=== PATIENT | female | born 1965 | race Caucasian/White ===

== ENCOUNTER 2020-01-10 13:17 | Inpatient (IN) | payer OTHER ==
[~2020-01-10] VITALS: Ht 165.1 cm; Wt 83.0 kg
[~2020-01-10 13:17] MED LIST: ALPR.5 PO; AMLO5 PO; Aspirin EC81 MG PO; HYDACE10B PO; LISI20 PO
[2020-01-10 14:12] LABS: Hematocrit 28.5 % (33.0-51.0); Hemoglobin 9.3 g/dL (11.5-16.0); Mean Corpuscular HGB 29.7 pg (26.0-34.0); Mean Corpuscular HGB Conc 32.6 g/dL (31.5-36.5); Mean Corpuscular Volume 91 fL (80-100); Mean Platelet Volume 9.7 fL (9.1-12.4); Platelet Count 434 K/mm3 (150-400); RDW Coefficient Variation 15.5 % (11.7-14.2); RDW Standard Deviation 51.4 fL (35.1-46.3); Red Blood Cell Count 3.13 M/mm3 (3.80-5.20)
[2020-01-10 14:22] LABS: PCO2 Arterial 30.5 mmHg (35-45); PO2 Arterial 80.1 mmHg (80-100)
[2020-01-10 14:23] LABS: White Blood Cell Count 50.94 K/mm3 (4.00-11.30)
[2020-01-10 14:42] LABS: Ethanol (Alcohol), Blood, Med <3 mg/dL; International Normalized Ratio 1.33; Troponin I <0.015 ng/mL (0.000-0.040)
[2020-01-10 14:43] LABS: BAND PERCENT MAN 26 % (0-8); BASOPHILS PERCENT MAN 0 % (0-2); EOSINOPHILS PERCENT MAN 0 % (0-6); LYMPHOCYTES ABSOLUTE MAN 2.54 K/mm3 (0.84-5.20); LYMPHOCYTES PERCENT MAN 5 % (21-46); METAMYELOCYTE ABSOLUTE MAN 1.01 K/mm3 (0.00-0.00); METAMYELOCYTE PERCENT MAN 2 % (0-0); MONOCYTES PERCENT MAN 0 % (4-13); NEUTROPHILS ABSOLUTE MAN 47.37 K/mm3 (1.96-9.15); SEG NEUTROPHILS PERCENT MAN 67 % (41-73); TOTAL CELLS COUNTED 100
[2020-01-10 14:50] LABS: Alanine Aminotransfer (ALT/SGP 27 U/L (12-78); Albumin, Blood 1.3 g/dL (3.4-5.0); Albumin/Globulin Ratio 0.3 (0.8-1.8); Alk Phos 239 U/L (50-136); Anion Gap 10 mmol/L (6-16); Aspartate Aminotrans (AST/SGOT 37 U/L (12-37); Bilirubin, Total 0.5 mg/dL (0.1-1.0); Blood Urea Nitrogen 44 mg/dL (8-24); Bun/Creatinine Ratio 16.4 (12.0-20.0); CO2, Blood 21 mmol/L (21-32); Calcium, Blood 7.3 mg/dL (8.5-10.1); Chloride, Blood 100 mmol/L (98-108); Creatinine, Blood 2.68 mg/dL (0.40-1.00); Globulin, Blood 4.4 g/dL (2.2-4.0); Glomerular Filtration Rate 20 (60-); Glucose, Blood 83 mg/dL (70-99); Potassium, Blood 6.1 mmol/L (3.5-5.5); Sodium, Blood 131 mmol/L (136-145); Total Protein, Blood 5.7 g/dL (6.4-8.2)
[2020-01-10 16:30] LABS: Adenovirus Not Detected (NOT DETECT); Bordetella pertussis Not Detected (NOT DETECT); Chlamydophila pneumoniae Not Detected (NOT DETECT); Coronavirus 229E Not Detected (NOT DETECT); Coronavirus HKU1 Not Detected (NOT DETECT); Coronavirus NL63 Not Detected (NOT DETECT); Coronavirus OC43 Not Detected (NOT DETECT); Human Metapneumovirus Not Detected (NOT DETECT); Human Rhinovirus/Enterovirus Not Detected (NOT DETECT); Influenza A/2009-H1 Not Detected (NOT DETECT); Influenza A/H1 Not Detected (NOT DETECT); Influenza A/H3 Not Detected (NOT DETECT); Influenza B Not Detected (NOT DETECT); Mycoplasma pneumoniae Not Detected (NOT DETECT); Parainfluenza Virus 1 Not Detected (NOT DETECT); Parainfluenza Virus 2 Not Detected (NOT DETECT); Parainfluenza Virus 3 Not Detected (NOT DETECT); Parainfluenza Virus 4 Not Detected (NOT DETECT); Respiratory Syncytial Virus Not Detected (NOT DETECT)
[2020-01-10 17:10] LABS: Source, Urine Catheter
[2020-01-10] MEDS ORDERED: AMLO5 PO (17:13)
[2020-01-10] MEDS ORDERED: DICLOFENAC 1% TOP (17:14)
[2020-01-10] MEDS ORDERED: Diclofenac Sodi50 MG PO (17:15)
[2020-01-10] MEDS ORDERED: FURO40 PO (17:17)
[2020-01-10] MEDS ORDERED: NORCO PO (17:18)
[2020-01-10] MEDS ORDERED: LISI20 PO (17:19)
[2020-01-10] MEDS ORDERED: METO25ER PO (17:20)
[2020-01-10] MEDS ORDERED: Nitrofurantoin100 M1 PO (17:21)
[2020-01-10] MEDS ORDERED: TIOT18 INH (17:22)
[2020-01-10 17:24] LABS: Blood, Urine 2+ (Neg); Glucose Qualitative, Urine Neg (Neg); Ketones, Urine Neg (Neg); Leukocyte Esterase, Urine 2+ (Neg); Nitrite, Urine Neg (Neg); Protein, Urine 1+ (Neg); Specific Gravity, Urine 1.015 (1.003-1.022); Urobilinogen, Urine 1+ (Normal)
[2020-01-10] MEDS ORDERED: Vitamin D3 PO (17:24)
[2020-01-10 17:30] LABS: Appearance, Urine Hazy (Clear); Bilirubin, Urine 1+ (Neg); Color, Urine Yellow (P-Yellow)
[2020-01-10 17:31] LABS: Bacteria Few /hpf; Squamous Epithelial Cells Many /hpf (Few)
[2020-01-10 17:33] LABS: U Amphetamine Screen Not Detected; U Barbituate Screen Not Detected; U Benzodiazapine Screen DETECTED; U Buprenorphine Screen Not Detected; U Cannabinoids Screen Not Detected; U Cocaine Screen Not Detected; U Methadone Screen Not Detected; U Methamphetamine Screen Not Detected; U Opiates Screen DETECTED; U Oxycodone Screen Not Detected; U Phencyclidine Screen Not Detected; U Propoxyphene Screen Not Detected
[2020-01-10 17:44] LABS: Base Excess Venous -8.1 mmol/L; Bicarbonate Venous 17.8 mmol/L (24.0-30.0); PCO2 Venous 40.1 mmHg (38-42); PO2 Venous 39.4 mmHg (38-42)
[2020-01-10 17:45] LABS: pH Blood Venous 7.27 (7.34-7.37)
[2020-01-10 18:32] LABS: Albumin, Blood 1.2 g/dL (3.4-5.0); Anion Gap 9 mmol/L (6-16); Blood Urea Nitrogen 40 mg/dL (8-24); Bun/Creatinine Ratio 17.5 (12.0-20.0); CO2, Blood 19 mmol/L (21-32); Calcium, Blood 6.8 mg/dL (8.5-10.1); Chloride, Blood 105 mmol/L (98-108); Creatinine, Blood 2.29 mg/dL (0.40-1.00); Glomerular Filtration Rate 24 (60-); Glucose, Blood 92 mg/dL (70-99); Phosphorus, Blood 6.4 mg/dL (2.5-4.9); Potassium, Blood 5.2 mmol/L (3.5-5.5); Sodium, Blood 133 mmol/L (136-145)
--- NOTE | 2020-01-10 19:20 | NUR ---
ASSUMED CARE OF PT, BEDSIDE REPORT RECEIVED. PT IS RESTING QUIETLY ON LEFT SIDE IN BED ON ARRIVAL TO ROOM, DOES NOT VERBALLY INTERACT WITH STAFF DURING PT HANDOFF REPORT. GTTS ARE NOTED LR 1 LITER BOLUS INFUSING AT WIDE OPEN AND 500 ML REMAINING, LEVOPHED GTT AT 20 MCG/MIN, VASOPRESSIN AT 0.04 MCG/MIN, LEVAQUIN AND VANCOMYCIN CURRENTLY INFUSING. PT DOES RESPOND TO HER STATED NAME AND INQUIRY REGARDING PAIN, STATES THAT SHE HURTS ALL OVER HOWEVER DOES NOT PROVIDE PAIN SCALE WHEN ASKED AND DOES NOT DESCRIBE PAIN ONSET OR QUALITY, STATES THAT SHE "JUST DON'T FEEL GOOD" AND REQUESTS TO SLEEP AT THIS TIME. SHE DOES OPEN EYES WHEN INSTRUCTED FOR PUPIL ASSESSMENT, IMMEDIATELY UPON COMPLETING STATEMENTS TO STAFF, SHE APPEARS TO RETURN TO SLEEP WITH OCCASIONAL SNORING RESPIRATIONS NOTED HOWEVER SATS MAINTAIN 91-92% AT FINGERTIP PROBE, IMPROVE TO 92-94% WITH MOVEMENT OF PROBE FROM FINGERTIP TO EARLOBE OR NARES, LUNGS ARE CLEAR WITH DIM SOUNDS MID TO BASES, RESP RATE IS BETWEEN 12 AND 14/MIN WHEN PT IS UNDISTURBED BUT IMPROVE TO 14-16/MIN WITH INCREASED STIMULATION, NO VISIBLE INCREASED WORK OF BREATHING IS NOTED AT THIS TIME, ,PT DENIES SOB/DYSPNEA. HRR, SINUS TO SINUS TACH ON MONITOR, RATE 90-105 DURING ASSESSMENT, RADIAL PULSES ARE FULL BILAT, PEDAL PULSES ARE DIFFICULT TO PALPATE AND 3+ PITTING EDEMA TO BILAT LOWER EXTREMITIES EXTENDS TO 2+ PITTING EDEMA UP TO MID ABD, HYPOTENSION IS NOTED DURING REPORT AND LARGE ADULT BP CUFF TO RIGHT ARM IS EXCHANGED FOR SMALL ADULT BP CUFF TO LEFT UPPER ARM WITH APPROPRIATE FIT NOTED, PRESSURE IS GREATER THAN 120 SYSTOLIC AND LEVOPHED IS TITRATED DOWN TO 18 MCG/MIN WILL MONITOR AND CONTINUE TO TITRATE DOWN PT TOLERATES. ACTIVE BOWEL TONES X 4 WITH TENDERNESS TO LIGHT PALPATION NOTED, ABD SOFT. TEMP PROBE RICE IN PLACE DRAINING CLEAR YELLOW URINE IN RICE TUBING AT THIS TIME, DARK TIANNA/BROWN URINE IS EMPTIED FROM URINARY DRAINAGE BAG BY OFFGOING RN, WILL CONT TO MONITOR. WOUNDS TO BILAT LOWER EXTREMITIES REVIEWED WITH OFFGOING RN, PHOTOS OBTAINED, WILL APPLY MEPILEX DRESSINGS. PER OFFGOING RN PT WAS VERY RECENTLY POSITIONED TO LEFT SIDE, WILL FURTHER ASSESS COCCYX/BUTTOCKS WITH NEXT POSITION CHANGE.
--- NOTE | 2020-01-10 19:52 | NUR ---
[id number]: RECEIVED PT FROM ER EMERGENTLY-NO REPORT RECEIVED. PT IS LETHARGIC-MOANS INTERMITTENTLY. WILL OPEN EYES TO VERBAL, BUT FALLS BACK TO SLEEP.GENERALIZED WEAKNESS NOTED. PT IS HANDS AND FEET SOILED. PT DID STATE THAT HER "BUTT" HURTS. CONSEQUENTLY, HER COCCYX AND BUTTOCKS WAS FOUND TO BE RED, BLISTERED-PHOTO DONE BY LAINA PEREZ. ECG SHOWS ST 100-110'S. SBP 60'S. PT GIVEN APROX. 1500 CC IVF IN THE ER. LEVOPHED DRIP @ 15 MCG/MIN INFUSING VIA #22 GUAGE IV TO LEFT WRIST. DR. SANTORO AT BEDSIDE. RIJ QUAD LUMEN C.L. PLACED AND CONFIRMED BY CXR. LR BOLUS INITIATED X 1 LITER, LEVOPHED TITRATED UP TO 20 MCG/MIN, AND VASOPRESSIN DRIP INITIATED @0.04 UNITS/MIN. HYDROCORTISONE 100 MG IVP X 1 GIVEN AND ORDERED FOR Q 6 HRS. LUNGS COARSE T/O. RESP SHALLOW, BUT MAINTAINS SAT> 90% ON 2 LITERS NASAL CANULA. NO NOTED COUGH. RAPID COVID TEST SENT. PT PLACED IN FULL PRECAUTIONS UNTIL COVID IS RULED OUT. NPO. 3+ PITTING EDEMA NOTED FROM THE ABDOMEN TO TOES. THERE IS REDNESS NOTED TO THE TOP OF THE LEFT FOOT. THE LOWER EXTREMITIES ARE DISCOLORED BROWN AND ARE TENDER TO TOUCH. CT HEAD, ABDOMEN AND PELVIS DONE-PT TO CT VIA BED WITH RN-TOLERATED WELL. DR. SANTORO CONTACTED AT 1900, ONCE THE LR BOLUS COMPLETED. MAP TRENDING LESS THAN 60. ADDITIONAL 1000CC BOLUS OF LR INITIATED. ORDERS GIVEN FOR EPI DRIP PRN TO KEEP MAP 60-65. INTAKE 4761 VS. 1000CC DARK, URINE OUTPUT FROM TEMP RICE. ONCE 500 CC OF THE SECOND BOLUS INFUSED, MAP 60'S. REPORT GIVEN TO LAINA FARRIS.
--- NOTE | 2020-01-10 21:00 | NUR ---
PAIN ASSESSMENT PT REFUSES TO TURN FAR ENOUGH TO SIDE FOR ADEQUATE ASSESSMENT OF COCCYX AND BUTTOCKS, CONCERNS REGARDING PRESSURE RELATED INJURY AND CURRENT SKIN ISSUES DISCUSSED WITH PT, RISKS OF INCREASING CURRENT PRESSURE AND MOISTURE RELATED INJURY WELL DEVELOPING MORE DECUBITIS ULCERS IS DISCUSSED WITH PT, SHE INITIALLY AGREES TO ATTEMPT HOWEVER PUSHES AGAINST BEDRAILS AND STAFF DURING TURN AND REFUSES. DR CAZARES ARRIVES AT BEDSIDE AND PT REPORT OF 10/10 PAIN IS DISCUSSED WELL HOME DOSE OF HYDROCODONE, CURRENT RESP RATE OF 12-14 DISCUSSED WITH MD WELL. ORDERS RECEIVED. PT IS ALERT AT THIS TIME AND ADMISSION HX IS COMPLETED, SHE DOES REQUEST THAT STAFF CONFIRM HOME DOSAGES WITH ARMANDO IN AM HE "CAN SEE THE BOTTLES"
[2020-01-10 21:22] LABS: Base Excess Venous -6.9 mmol/L; Bicarbonate Venous 19.1 mmol/L (24.0-30.0); PCO2 Venous 36.7 mmHg (38-42); PO2 Venous 53.9 mmHg (38-42); pH Blood Venous 7.33 (7.34-7.37)
[2020-01-11 04:29] LABS: Hematocrit 24.8 % (33.0-51.0); Hemoglobin 8.4 g/dL (11.5-16.0); Mean Corpuscular HGB 30.1 pg (26.0-34.0); Mean Corpuscular HGB Conc 33.9 g/dL (31.5-36.5); Mean Corpuscular Volume 89 fL (80-100); Mean Platelet Volume 9.8 fL (9.1-12.4); Platelet Count 366 K/mm3 (150-400); RDW Standard Deviation 48.4 fL (35.1-46.3); Red Blood Cell Count 2.79 M/mm3 (3.80-5.20)
[2020-01-11 04:49] LABS: BAND PERCENT MAN 13 % (0-8); BASOPHILS PERCENT MAN 0 % (0-2); EOSINOPHILS PERCENT MAN 0 % (0-6); MONOCYTES ABSOLUTE MAN 1.16 K/mm3 (0.16-1.47); MONOCYTES PERCENT MAN 2 % (4-13); NEUTROPHILS ABSOLUTE MAN 57.03 K/mm3 (1.96-9.15); SEG NEUTROPHILS PERCENT MAN 85 % (41-73); TOTAL CELLS COUNTED 100
[2020-01-11 04:55] LABS: Alanine Aminotransfer (ALT/SGP 23 U/L (12-78); Albumin, Blood 1.2 g/dL (3.4-5.0); Albumin/Globulin Ratio 0.3 (0.8-1.8); Alk Phos 231 U/L (50-136); Anion Gap 9 mmol/L (6-16); Aspartate Aminotrans (AST/SGOT 38 U/L (12-37); Bilirubin, Total 0.4 mg/dL (0.1-1.0); Blood Urea Nitrogen 37 mg/dL (8-24); Bun/Creatinine Ratio 18.4 (12.0-20.0); CO2, Blood 22 mmol/L (21-32); Calcium, Blood 6.7 mg/dL (8.5-10.1); Chloride, Blood 101 mmol/L (98-108); Creatinine, Blood 2.01 mg/dL (0.40-1.00); Globulin, Blood 3.9 g/dL (2.2-4.0); Glomerular Filtration Rate 27 (60-); Glucose, Blood 162 mg/dL (70-99); Magnesium, Blood 1.3 mg/dL (1.6-2.4); Potassium, Blood 4.7 mmol/L (3.5-5.5); Sodium, Blood 132 mmol/L (136-145); Total Protein, Blood 5.1 g/dL (6.4-8.2); Vancomycin, Random 20.3 ug/mL
--- NOTE | 2020-01-11 06:22 | NUR ---
PT RESTS QUIETLY THROUGHOUT SHIFT, REMAINS ORIENTED, AROUSABLE TO VERBAL STIMULI CONSISTENTLY, DID REMAIN ALERT THROUGHOUT ADMIT HX AND THEN REQUESTED TO SLEEP AFTER COMPLETION. COMMUNITY ORGANIZATION DIRECTOR REMAIN EQUAL THROUGHOUT NOC, GROSS MOVEMENT TO BILAT LOWER EXTREMITIES, PT REPORTS MOVEMENT IS EXTREMELY PAINFUL WITH POSITION CHANGES, WHEN STIMULATION IS DECREASED, PT APPEARS TO SLEEP WITHOUT RESTLESSNESS OR AGITATION, NO GRIMACING NOTED. CONTINUES TO DENY SOB THROUGHOUT NOC, SATS REMAIN MID 90S WITH OXYGEN AT 2 L/MIN TITRATED DOWN FROM 3 L/MIN AT HS, DID ATTEMPT TO TITRATE DOWN TO 1.5 L/MIN WITH RESULTING SATS DECREASED TO 88%, LUNGS REMAIN CLEAR THROUGHOUT, BASES DIM BILAT, RESP RATE 12-14 WITH APPEARANCE OF SLEEP. HRR, CONTINUES IN SINUS RHYTHM, LEVOPHED WAS TITRATED DOWN FROM 20 AT BEGINNING OF SHIFT TO 2 MCG/MIN OF THIS TIME, EDEMA TO BILAT LOWER EXTREMITIES CONTINUES AT 3+ PITTING EDEMA HOWEVER SKIN IS NO LONGER TIGHT AND SHINY IN APPEARANCE. TEMP PROBE RICE REMAINS IN PLACE DRAINING CLEAR DARK YELLOW URINE THIS AM. ABD REMAINS TENDER THROUGHOUT NOC, LAST BM 01/08/20. MEPILEX DRESSINGS TO BILAT LOWER EXTREMITY WOUNDS, SEE PHOTOS, BARRIER CREAM TO MOISTURE INJURIES TO BUTTOCKS/COCCYX.
--- NOTE | 2020-01-11 07:48 | NUR ---
IV DOCUMENTED RIGHT HAND IS IN LEFT HAND. SITE WNL.
--- NOTE | 2020-01-11 08:00 | NUR ---
PT A&OX3. AWAKENED TO VERBAL. REPORTS 9/10 GENERALIZED PAIN. MED WITH NORCO-SEE EMAR. GENERALIZED WEAKNESS. LOWER EXTEMITIES WITH GROSS MOTOR MOVEMENT DUE TO HIP PAIN AND EDEMA. EDEMA EXTENDS FROM ABDOMEN TO LOWER EXTREMITIES. LOWER EXTREMITIES DISCOLORED, BROWN APPEARANCE AN PEDAL PULSES FAINT. ECG SHOWS SR WITH RATE 90'S. SBP 90-100'S AND MAP 60-65 WITH VASOPRESSIN @0.04 UNITS/MIN AND LEVOPHED @ 2 MCG/MIN. LUNGS DIMINISHED IN THE BASES. SATS>90% ON 2 LITERS NASAL CANULA. PT RESP RATE 12-14 AND SHALLOW. NPO EXCEPT FOR MEDS. RICE TO BSC WITH MODERATE AMOUNT OF CLEAR, YELLOW URINE OUTPUT. COCCYX AND BUTTOCKS REMAINS RED-SKIN BARRIER IN PLACE. MEPILEX DRESSING INTACT ON BILATERAL FEET. EXTREMITIES ELEVATED ON PILLOWS.
--- NOTE | 2020-01-11 08:30 | NUR ---
SKIN AND WOUND CARE DONE TO COCCYX AND BUTTOCKS. THE SKIN IS VERY EXCORIATED-SEE PHOTOS TAKEN ON ADMIT. MEPILEX DRESSING TO COCCYX X 1 AND TOBUTTOCKS/THIGH X 2. PT POSITIONED TO COMFORT ON RIGHT SIDE.
--- NOTE | 2020-01-11 09:13 | NUR ---
ECHO IN PROGRESS.
--- NOTE | 2020-01-11 11:19 | NUR ---
PT SLEEPING WHEN NOT DISTURBED. AROUSE TO VOICE. PT DENIES PAIN AT THIS TIME. MAGNESIUM SULFATE 2 GRAM RIDER INITIATED. RUQ US IN PROGRESS. MAINTAINS MAP 60-65 WITH LEVOPHED @ 3 MCG/MIN AND VASOPRESSIN @ 0.04 UNITS/MIN.
--- NOTE | 2020-01-11 11:55 | NUR ---
ECHOCARDIOGRAM COMPLETE
--- NOTE | 2020-01-11 13:45 | NUR ---
PT CONTINUES TO REST QUIETLY WHEN NOT DISTURBED. AWAKENED TO HER NAME. DENIES PAIN AT THIS TIME. REPOSITIONED TO COMFORT IN SEMI LOCKHART POSITION.
--- NOTE | 2020-01-11 17:30 | NUR ---
PT COVID TEST NEGATIVE. PRECAUTIONS REMOVED. PT AWAKENED TO VOICE AND REPORTED 9/10 PAIN. PT CRYING OUT WITH SKIN CARE. EDEMA FROM THE ABDOMEN TO TOES IS BOTH PITTING AND WEEPING. THE CRAIG PAD, COCCYX/BUTTOCKS MEPILEX X 3, AND THE MEPILEX TO EACH LOWER EXTREMITY WERE COMPLETELY SATURATED. ALL WOUNDS CLEANSED WITH WOUND CLEANSER AND PATTED DRY. DRY FLOW PAD AND BATER REPLACED. CALAZIME TO COCCYX AND BUTTOCKS-PT REPOSITIONED TO LEFT SIDE. NEW MEPILEX PLACED TO EACH OF THE LOWER EXTREMITY WOUNDS. PT MED WITH NORCO 1 PO-SEE EMAR. MAINTAINS SATS>90% ON 2 LITERS NASAL CANULA. MAP 60-65 WITH LEVOPHED @ 3 MCG/MIN AND VASOPRESSIN @0.04 UNITS/MIN. INTAKE 613 VS 500 CC OUT THIS SHIFT.
--- NOTE | 2020-01-11 19:15 | NUR ---
ASSUMED CARE OF PT, BEDSIDE REPORT RECEIVED. LEVOPHED INFUSING AT 3 MCG/MIN, VASOPRESSIN AT 0.04 MCG/MIN, NS AT TKO. PT APPEARS TO BE SLEEPING, RESP EVEN AND REGULAR, SATS MAINTAINING WITH OXYGEN VIA NASAL CANNULA AT 2 L/MIN, LUNGS CLEAR WITH DIM BASES BILAT AT THIS TIME. SHE AROUSES TO VERBAL STIMULI, DENIES NEEDS AT THIS TIME. PRESSURES ARE MAINTAINING, RADIAL PULSES ARE FULL BILAT, PEDAL AND TIBEAL CONT FAINT HOWEVER IMPROVED AT THIS TIME, EDEMA CONTINUES, BILAT FOOT WOUNDS AND BUTTOCKS HAVE BEEN WEEPING PER OFFGOING RN. HYPOACTIVE BOWEL TONES, ABD SOFT, NO GRIMACING WITH PALPATION. TEMP PROBE RICE REMAINS IN PLACE DRAINING CLEAR DARK YELLOW URINE TO GRAVITY.
[2020-01-12 05:07] LABS: BASOPHILS ABSOLUTE AUTO 0.18 K/mm3 (0.00-0.23); BASOPHILS PERCENT AUTO 0 % (0-2); EOSINOPHILS PERCENT AUTO 0 % (0-6); Hematocrit 23.2 % (33.0-51.0); Hemoglobin 7.9 g/dL (11.5-16.0); IMMATURE GRAN PERCENT AUTO 2 % (0-1); LYMPHOCYTES ABSOLUTE AUTO 1.38 K/mm3 (0.84-5.20); LYMPHOCYTES PERCENT AUTO 3 % (21-46); MONOCYTES ABSOLUTE AUTO 1.47 K/mm3 (0.16-1.47); MONOCYTES PERCENT AUTO 3 % (4-13); Mean Corpuscular HGB 30.4 pg (26.0-34.0); Mean Corpuscular HGB Conc 34.1 g/dL (31.5-36.5); Mean Corpuscular Volume 89 fL (80-100); Mean Platelet Volume 9.9 fL (9.1-12.4); NEUTROPHILS ABSOLUTE AUTO 47.64 K/mm3 (1.96-9.15); NEUTROPHILS PERCENT AUTO 92 % (41-73); Platelet Count 315 K/mm3 (150-400); RDW Coefficient Variation 15.2 % (11.7-14.2); RDW Standard Deviation 49.2 fL (35.1-46.3)
[2020-01-12 05:16] LABS: White Blood Cell Count 51.57 K/mm3 (4.00-11.30)
[2020-01-12 06:02] LABS: Alanine Aminotransfer (ALT/SGP 23 U/L (12-78); Albumin, Blood 1.2 g/dL (3.4-5.0); Albumin/Globulin Ratio 0.3 (0.8-1.8); Alk Phos 217 U/L (50-136); Anion Gap 10 mmol/L (6-16); Aspartate Aminotrans (AST/SGOT 31 U/L (12-37); Bilirubin, Total 0.6 mg/dL (0.1-1.0); Blood Urea Nitrogen 40 mg/dL (8-24); Bun/Creatinine Ratio 20.1 (12.0-20.0); CO2, Blood 23 mmol/L (21-32); Calcium, Blood 7.1 mg/dL (8.5-10.1); Chloride, Blood 102 mmol/L (98-108); Creatinine, Blood 1.99 mg/dL (0.40-1.00); Globulin, Blood 3.7 g/dL (2.2-4.0); Glomerular Filtration Rate 28 (60-); Glucose, Blood 111 mg/dL (70-99); Magnesium, Blood 1.9 mg/dL (1.6-2.4); Potassium, Blood 4.2 mmol/L (3.5-5.5); Sodium, Blood 135 mmol/L (136-145); Total Protein, Blood 4.9 g/dL (6.4-8.2); Vancomycin, Random 25.7 ug/mL
--- NOTE | 2020-01-12 06:30 | NUR ---
PT RESTS QUIETLY THROUGHOUT SHIFT, CONTINUES TO ROUSE TO VERBAL STIMULI, SHE IS SLOW TO RESPOND HOWEVER IS ABLE TO STATE THAT SHE IS IN [facility] IN THE ICU, SHE DOES INQUIRE REGARDING THE TIME THROUGHOUT THIS SHIFT BUT STATES THAT SHE ISN'T ABLE TO SEE WELL TO READ THE DISPLAYED TIME ON THE WALL CLOCK. SHE DENIES NAUSEA THROUGHOUT SHIFT, SHE C/O PAIN WITH POSITION CHANGES BUT APPEARS TO QUICKLY RETURN TO SLEEP WITHOUT GRIMACING, NO RESTLESSNESS IS NOTED. LUNGS REMAIN CLEAR THROUGHOUT WITH DIM BASES BILAT, SATS MAINTAIN WITH OXYGEN AT 2 L/MIN VIA NC, NO VISIBLE INCREASED WORK OF BREATHING THROUGHOUT NOC, RATE LOW TEENS WITH SLEEP. HRR, SINUS ON MONITOR, PRESSURES HAVE MAINTAINED, LEVOPHED TITRATED DOWN TO 2 MCG/MIN AND VASOPRESSIN TO STANDBY, PRESSURE CONTINUED TO MAINTAIN, LEVOPHED TO STANDBY WITH AM LAB DRAW. HYPOACTIVE BOWEL TONES CONTINUE, ABD REMAINS SOFT, TENDER TO PALP. TEMP PROBE RICE REMAINS, DRAINING CLEAR TIANNA URINE.
--- NOTE | 2020-01-12 07:30 | NUR ---
PT AWAKE AND ALERT. ORIENTED TO PERSON AND PLACE. REMAINS UNSURE OF DATE AND TIME. PT STATES " I FEEL BETTER TODAY." PT REPORTS 7-8/10 GENERALIZED PAIN. RODRIGUEZ, BUT WEAK. ONLY GROSS MOVEMENT TO LOWER EXTREMITIES DUE TO EDEMA AND JOINT PAIN. MED WITH NORCO PO -SEE EMAR. ECG CONTINUES SR WITH RATE 70-90'S. MAP 60-65- NO PRESSORS AT THIS TIME. LUNGS DIMINISHED IN THE BASES. RESP. SHALLOW, BUT MAINTAINS SATS>90% ON RA. PT CURRENTLY NPO EXCEPT FOR MEDS, BUT SHE DOES STATE THAT SHE IS HUNGRY. EDEMA TO ABDOMEN AND LEGS IMPROVING, BUT PITTING AND WEEPING STILL. LOWER EXTREMITIES REMAIN DISCOLORED, BROWN IN COLOR-DP/PT PULSES REMAIN FAINT.MEPILEX DRESSING INTACT TO RIGHT ANKLE/FOOT AND TOP OF LEFT FOOT. COCCYX/BUTTOCKS REDNESS AND EXCORIATION IMPROVING. CLEANSED WITH WOUND CLEANSER AND CALAZIME APPLIED. RICE TO BSD WITH ADEQUATE AMOUNT OF CLEAR, YELLOW URINE OUTPUT.
--- NOTE | 2020-01-12 15:36 | NUR ---
PT DANGLED AT BEDSIDE-TOLERATED WELL. ABLE TO HOLD HERSELF UP. PT REPORTS 8/10 HEADACHE. MED WITH NORCO 1 PO. TAB BROKEN INTO 2 PIECES. PT REQUESTED TO "DO IT MYSELF." HOB ELEVATED TO 90 DEGREES. PT DID HAVE A COUGHING SPELL AFTERWARDS AND SATS 88%. O2 APPLIED TO KEEP SATS>90%. AFTER APROXIMATELY 10 MINUTES, PT NO LONGER COUGHING AND APPEARED TO DRIFT OFF TO SLEEP.
--- NOTE | 2020-01-12 17:15 | NUR ---
PT IN NO NOTED RESP DISTRESS. NO FURTHER COUGHING. SATS>90% ON RA. REPOSITIONED PT TO HIGH LOCKHART'S POSITION-SORTING SUPERVISOR ASSISTING WITH MEAL TRAY.
--- NOTE | 2020-01-12 19:00 | NUR ---
ASSUMED CARE OF PT, BEDSIDE REPORT RECEIVED. PT IS RESTING QUIETLY RECLINING IN BED STATES THAT SHE FEELS THE NEED TO VOID, DISCUSSED RICE CATH IN PLACE AND PT STATES "OH, I FORGOT, I'M SO SORRY" PT REASSURED. SHE DENIES NEEDS AT THIS TIME.
--- NOTE | 2020-01-12 19:05 | NUR ---
PT TOLERATED FULL LIQUID DIET WELL. HOWEVER, POOR APPETITE IN GENERAL. ENSURE SUPPLEMENT ORDERED WITH EACH MEAL. NO FURTHER ISSUES WITH COUGHING AFTER FLUIDS. SATS>90% ON RA. NO NOTED DISTRESS. PT RESTING QUIETLY WHEN NOT DISTURBED.
--- NOTE | 2020-01-12 20:15 | NUR ---
PT RESTING QUIETLY, AROUSES EASILY TO VERBAL STIMULI, DENIES NUMBNESS/TINGLING, DENIES CP/PRESSURE, DENIES SOB/DYSPNEA, DOES ADMIT TO GENERALIZED PAIN RATED AT 10/10 AND REQUESTS LIGHTS OFF IN ROOM AND TELEVISION ON AT COMPLETION OF HS MEDS AND ASSESSMENT FOR PAIN TREATMENT AT THIS TIME. VERBAL ANSWERS ARE SLOW, SHE IS UNSURE REGARDING DATE OR DAY OF WEEK BUT CAN STATE THAT THIS IS JANUARY OF 2020 AND THAT SHE IS IN [facility] FOLLOWING HER CALLING 911 BECAUSE SHE WAS UNABLE TO WALK AT HOME. SHE IS SPEAKING IN FULL SENTENCES WITHOUT VISIBLE INCREASED WORK OF BREATHING, SATS ARE MID 90S ON ROOM AIR, LUNGS CLEAR THROUGHOUT WITH DIM BASES BILAT. HRR, SINUS ON MONITOR, RATE HIGH 70S LOW 80S, PRESSURES CONTINUE TO MAINTAIN WITH PRESSORS ON STANDBY, SKIN IS PINK AND WARM, EDEMA CONTINUES FROM MID ABD TO FEET BILAT, 3+ PITTING FROM FEET TO HIPS/BUTTOCKS, 2+ LOW ABD TO UMBILICUS, WEEPING HAS SLOWED BUT CONTINUES. HYPOACTIVE BOWEL TONES CONTINUE, ABD SOFT, NO GRIMACING/GUARDING WITH PALPATION BUT PT DOES ADMIT TO SLIGHT TENDERNESS, HAS BEEN TOLERATING FULL LIQUID DIET WELL. RICE REMAINS IN PLACE DRAINING CLEAR DARK YELLOW URINE TO GRAVITY. DRESSINGS TO BILAT LOWER EXTREMITIES ARE CDI, BUTTOCKS/COCCYX JESSI WITH BARRIER CREAM IN PLACE, DRYFLOW AND BEDDING UNDER PT IS DRY AT THIS TIME, WILL CONT TO CHANGE NEEDED WITH REPOSITIONING. CENTRAL LINE REMAINS IN PLACE TO RIGHT IJ, DRESSING CDI, INFUSING NS AT TKO.
[2020-01-13 04:53] LABS: Hematocrit 22.8 % (33.0-51.0); Hemoglobin 7.6 g/dL (11.5-16.0); Mean Corpuscular HGB 29.5 pg (26.0-34.0); Mean Corpuscular HGB Conc 33.3 g/dL (31.5-36.5); Mean Corpuscular Volume 88 fL (80-100); Mean Platelet Volume 9.8 fL (9.1-12.4); Platelet Count 270 K/mm3 (150-400); RDW Coefficient Variation 15.2 % (11.7-14.2); RDW Standard Deviation 48.9 fL (35.1-46.3); Red Blood Cell Count 2.58 M/mm3 (3.80-5.20); White Blood Cell Count 38.29 K/mm3 (4.00-11.30)
[2020-01-13 05:12] LABS: Alanine Aminotransfer (ALT/SGP 28 U/L (12-78); Albumin, Blood 1.3 g/dL (3.4-5.0); Albumin/Globulin Ratio 0.4 (0.8-1.8); Alk Phos 192 U/L (50-136); Anion Gap 8 mmol/L (6-16); Aspartate Aminotrans (AST/SGOT 32 U/L (12-37); Bilirubin, Total 0.4 mg/dL (0.1-1.0); Blood Urea Nitrogen 42 mg/dL (8-24); Bun/Creatinine Ratio 22.5 (12.0-20.0); CO2, Blood 23 mmol/L (21-32); Calcium, Blood 7.2 mg/dL (8.5-10.1); Chloride, Blood 104 mmol/L (98-108); Creatinine, Blood 1.87 mg/dL (0.40-1.00); Globulin, Blood 3.7 g/dL (2.2-4.0); Glomerular Filtration Rate 30 (60-); Glucose, Blood 106 mg/dL (70-99); Potassium, Blood 4.1 mmol/L (3.5-5.5); Sodium, Blood 135 mmol/L (136-145); Vancomycin, Random 22.6 ug/mL
[2020-01-13 06:33] LABS: BASOPHILS PERCENT MAN 0 % (0-2); EOSINOPHILS PERCENT MAN 0 % (0-6); LYMPHOCYTES ABSOLUTE MAN 0.38 K/mm3 (0.84-5.20); LYMPHOCYTES PERCENT MAN 1 % (21-46); METAMYELOCYTE ABSOLUTE MAN 0.38 K/mm3 (0.00-0.00); METAMYELOCYTE PERCENT MAN 1 % (0-0); MONOCYTES ABSOLUTE MAN 0.38 K/mm3 (0.16-1.47); MONOCYTES PERCENT MAN 1 % (4-13); MYELOCYTE ABSOLUTE MAN 0.38 K/mm3 (0.00-0.00); MYELOCYTE PERCENT MAN 1 % (0-0); NEUTROPHILS ABSOLUTE MAN 36.75 K/mm3 (1.96-9.15); SEG NEUTROPHILS PERCENT MAN 96 % (41-73); TOTAL CELLS COUNTED 100
--- NOTE | 2020-01-13 07:10 | NUR ---
REC'D BEDSIDE REPORT FROM LAINA FARRIS AND AM NOW ASSUMING CARE OF THIS PT.
--- NOTE | 2020-01-13 07:15 | NUR ---
AM ASSESSMENT; PT IS ALERT AND ORIENTED UPON ARRIVAL. PT ASKED FOR PHONE TO BE BEDSIDE. PHONE/ CALL LIGHT WITHIN REACH. ABLE TO MINIMALLY ASSIST WITH TURNS IN THE BED. PT REPORTS SHE WEARS DENTURES WHICH ARE AT HOME AT THIS TIME. PT ORIENTED TO SELF/FAMILY/[employer]/[place]/MONTH/YEAR, HOWEVER, PT DOES HAVE SLIGHTLY CONFUSED SPEECH AND WILL REPEAT INAPPROPRIATE WORDS, AND WORD SEARCH UNTIL APPROPRIATE THOUGHT IS EXPRESSED. PT DOES REPORT A 8/10 PAIN IN THE LE'S BILATERALLY (HX: BILATERAL KNEE INJURY) AND LOW BACK PAIN. WILL MEDICATE PER ORDERS AND REPOSITION PER PROTOCOL/PRN. LUNGS ARE CLEAR BUT DIMIN IN BILATER BASES. SPO2 SATS >90% ON RA. HR REGULAR, SR/ST 90-100'S RANGE. EDEMA PER SHIFT ASSESSMENT WITH WEEPING AREAS. ABS SOFT/ROUND/SOMEWHAT TENDER TO PALPATION. PT ON A FULL LIQUID DIET AT THIS TIME. WILL DICUSS ADVANCE IN DIET AND BOWEL CARE. RICE CATH WITH CLEAR, DARK YELLOW URINE DRAINING PER GRAVITY. -FULL CODE STATUS -DISCUSS POTENTIAL STATUS CHANGE
--- NOTE | 2020-01-13 07:29 | NUR ---
PT RESTS QUIETLY THROUGHOUT SHIFT, SHE CONTINUES ABLE TO STATE THAT SHE IS IN [facility] IN THE ICU IN [facility], THAT IT IS JANUARY OF 2020, AND SHE ARRIVED VIA AMBULANCE AFTER HER CALLED 911 BECAUSE SHE COULDN'T WALK ALTHOUGH SHE DOES HAVE SOME TROUBLE DIFFERENTIATING BETWEEN HER CALL LIGHT AND ROOM PHONE EVEN WITH STAFF AT BEDSIDE REINFORCING WHICH IS THE PHONE AND WHICH IS THE CALL LIGHT. LUNGS REMAIN CLEAR THROUGHOUT, SHE CONTINUES ON ROOM AIR THROUGHOUT NOC, NO INCREASED WORK OF BREATHING HAS BEEN NOTED AND SATS MAINTAINING. SINUS RHYTHM CONTINUES, PRESSURES ARE MAINTAINING WITH PRESSORS ON STANDBY FOR MORE THAN 24 HOURS AT THIS TIME. EDEMA CONTINUES, WEEPING IS IMPROVED, WOUNDS TO COCCYX AND BUTTOCKS ARE IMPROVING IN APPEARANCE. RICE REMAINS IN PLACE CONTINUES DRAINING CLEAR DARK YELLOW URINE TO GRAVITY, URINE OUTPUT IMPROVED. PT'S STRENGTH IS NOTED IMPROVED ENOUGH TO TURN NEAR INDEPENDENTLY WITH VERBAL PROMPTING, MINIMAL ASSIST IS STILL NEEDED FOR LINE AND BLANKET MANAGEMENT
--- NOTE | 2020-01-13 13:08 | NUR ---
REPORTED OFF TO MATERIAL CONTROL SUPERVISOR AND SHE WILL BE ASSUMING CARE OF THIS PT ONCE THEY ARE TNX'D TO PCU-12.
--- NOTE | 2020-01-13 13:20 | NUR ---
PT TNX'D: PT TRANSFERRED VIA W/C BY DOROTEO JENKINS. PT'S CHART/MEDS/AND PERSONAL BELONGINGS SENT WITH PT. REGULATORY COMPLIANCE MANAGER, REPORTED SHE WILL DISCUSS WITH LAINA ENGLISH ABOUT DISCONTINUING CENTRAL LINE AND OBTAINING ADD'L ACCESS. PT DOES HAVE ONE PIV THAT IS SL'D. DR HIDALGO CONSULTED WITH THIS RN. DISCUSSED LOW H+H, STARTING BOWEL CARE PROTOCOL, PT'S LBM WAS 5/6, AND ADVANCING DIET. DISCUSSED PT BEING FLUID POSITIVE BUT APPROX 5700ML'S.
--- NOTE | 2020-01-13 13:43 | NUR ---
PT ARRIVED TO THE ROOM AT APPROXIMATELY 1330. SHE IS ALERT AND ORIENTED BUT HAS DIFFICULTY FINDING WORDS. PT IS PLEASANT. PROVIDED WITH PHONE AND CALL LIGHT. WILL CONTINUE TO MONITOR.
--- NOTE | 2020-01-13 15:40 | NUR ---
DR. MURPHY NOTIFIED OF LOW H&H, VSS, PLAN TO CONTINUE TO MONITOR PT AT THIS TIME. DISCUSSED ACTIVITY STATUS AND CHANGED TO TOLERATED.
--- NOTE | 2020-01-13 19:51 | NUR ---
SHIFT SUMMARY PT ARRIVED TO THE UNIT AT APPROXIMATELY 1330. SHE HAS BEEN ALERT AND ORIENTED X2-3 SINCE ARRIVAL. SHE HAS HAD SOME HALLUCINATIONS. CONFUSION INCREASED THIS EVENING. PT HAS BEEN INCONTINENT OF URINE, ATTENDS IN PLACE. PT IS GETTING LASIX FOR FLUID OVERLOAD, SHE HAS GENERALIZED PITTING EDEMA. VSS. WILL MONITOR UNTIL REPORT TO ONCOMING RN.
--- NOTE | 2020-01-14 01:11 | NUR ---
ASSUMED CARE 1900. CONVERSIVE W/ ORIENTED X3. A FEW ODD STATEMENTS ABOUT HOW SHE WILL GO HOME TOMORROW AND SHE WILL NOT ALLOW MD TO KEEP HER HERE. REVIEWED HOW SHE IS CARED FOR AT HOME AND THE ASSISTANCE SHE WILL HAVE . SHE IS CONFIDENT " MY LOVES ME AND HE WILL TAKE VERY GOOD CARE OF ME." DENIES ANY PAIN. NO SOB AND ADVERSE DISCOMFORT. RA AND SR. WITHIN ABOUT 2 HR STAFF HEARS HER HAVING FULL CONVERSATIONS TO SOMEONE IN THE ROOM , WHEN NO ONE IS IN THE ROOM. LATER ASKS STAFF TO GIVE HER A PHONE NUMBER FOR THE [employer] TO GET HER HOME TOMORROW. PLAYING WITH PHONE AND NOT DIALING ANY NUMBERS OR ASKING FOR HER HOME PHONE. AT 2335, PLACED IN TRENDELENBERG, ASPIRATED BLOOD FROM 4 PORTS OF CENTREL LINE . REMOVED SUTURES. PLACED VASELINE GAUZE AND FOLDED 4X4 OVER SITE, ASKED PT TO HOLD BREATH AND REMOVED CENTRAL LINE. HELD PRESSURE FOR 20 MIN, PT CONVERSIVE AND CALMLY TALKING . OCCLUSIVE STRETCHY TAPE PLACED . NO ADVERSE EFFECTS. WHEN FINISHING IVPB AND TRYING TO FLUSH PERIPHERAL IV W/ SALINE, SHE ACCUSSED STAFF OF GIVING HER SOMEONE ELSES MEDICATION AND WOULD NOT ALLOW STAFF TO FLUSH LINE MED DCD. WHEN TRYING TO SHOW HER HER NAME ON IVPB, PT PULLED EMPTY BAG OF MED FROM STAFF'S HAND AND STARTED TO PULL APART TUBING AND PLASTIC. YELLING AT STAFF TO GET OUT OF THE ROOM AND SHE WILL NEED THE SUPERVISORS NUMBER AND WILL NEED TO TELL HER . STAFF ABLE TO REMOVE TUBING AND SHE HELD ONLY BAG OF MED W/ HER NAME ON IT. CHARGE NURSE TALKED TO PT AND GOT HER SOME GLASSES TO READ HER NAME ON BAG. PT CALMER NOW. ADJUSTED IV SITE FOR BETTER COMFORT AND MORE SATISFIED HER NEEDS WERE MET. NOW BY 0100 , ALLOWS STAFF TO CHANGE HER ATTENDS . PT DOES NOT TELL STAFF WHEN ATTENDS IS WET AND CHANGE IS NEEDED Q 1.5 HR. SOAKED AND IS AWARE . HS SNACK TAKEN . DOZING OFF TO SLEEP BY 0200 ALL PORTS OF 4 PORT CENTRAL LINE,
[2020-01-14 04:08] LABS: BASOPHILS ABSOLUTE AUTO 0.05 K/mm3 (0.00-0.23); BASOPHILS PERCENT AUTO 0 % (0-2); EOSINOPHILS PERCENT AUTO 0 % (0-6); Hematocrit 23.2 % (33.0-51.0); Hemoglobin 7.6 g/dL (11.5-16.0); IMMATURE GRAN ABSOLUTE AUTO 0.86 K/mm3 (0.00-0.10); IMMATURE GRAN PERCENT AUTO 3 % (0-1); LYMPHOCYTES PERCENT AUTO 6 % (21-46); MONOCYTES ABSOLUTE AUTO 1.51 K/mm3 (0.16-1.47); MONOCYTES PERCENT AUTO 6 % (4-13); Mean Corpuscular HGB 29.1 pg (26.0-34.0); Mean Corpuscular HGB Conc 32.8 g/dL (31.5-36.5); Mean Corpuscular Volume 89 fL (80-100); NEUTROPHILS ABSOLUTE AUTO 22.54 K/mm3 (1.96-9.15); NEUTROPHILS PERCENT AUTO 85 % (41-73); Platelet Count 258 K/mm3 (150-400); RDW Coefficient Variation 15.1 % (11.7-14.2); RDW Standard Deviation 48.6 fL (35.1-46.3); Red Blood Cell Count 2.61 M/mm3 (3.80-5.20); White Blood Cell Count 26.66 K/mm3 (4.00-11.30)
[2020-01-14 04:27] LABS: Bun/Creatinine Ratio 24.5 (12.0-20.0); Calcium, Blood 6.9 mg/dL (8.5-10.1); Creatinine, Blood 1.59 mg/dL (0.40-1.00); Magnesium, Blood 1.5 mg/dL (1.6-2.4); Phosphorus, Blood 3.2 mg/dL (2.5-4.9); Potassium, Blood 3.2 mmol/L (3.5-5.5)
--- NOTE | 2020-01-14 05:55 | NUR ---
SHIFT SUMMARY. NO FURTHER HALLUCINATIONS/PARONOIA SINCE ABOUT 0100. DOZING AT LONG INTERVALS. ATTENDS CHANGE Q 2 HR AND AROUSED FOR REPOSITIONING. NO ACUTE COMPLAINT OR ISSUES . CONSTANTLY CONFUSING TV REMOTE W/ PHONE WHEN AWAKE AND ESCALATING W/ FRUSTRATION ON AND OFF, ABOUT THIS
--- NOTE | 2020-01-14 08:28 | NUR ---
AM NOTE... ASSUMED CARE OF PT APROX 0700. PT IS A&Ox3, PT'S EMOTIONAL STATE IS VERY LIBALE AT THIS TIME, BEING RUDE TO STAFF AND THEN BEING VERY NICE. PT'S VS STABLE AT THIS TIME. PT HAS ANACSCARA AT 2-3+ ALL OVER AND 4+ PITTING TO HER BLE. L/S CLEAR IN THE UPPER LOBES WITH SLIGHT WHEEZES HEARD IN THE LLL. PT IS ON RA WITH O2 SATS >90%. BT PRESENT AND HYPOACTIVE ABD SOFT AND SLIGHTLY TENDER TO PALP. PT HAS HAD AN EPISODE OF DIARRHEA THIS AM. PT'S JORDANA AREA AND BUTTOCKS IS OPEN AND EXCORIATED. PT IS INCONT OF URINE AND STOOL, GOOD JORDANA CARE HAS BEEN DONE AND CREAM APPLIED TO HELP PREVENT FURTHER SKIN BREAKDOWN. CALL LIGHT IN REACH WILL CONTINUE TO MONITOR.
--- NOTE | 2020-01-14 12:00 | NUR ---
PT TRANSFERED. PT TRANSFERED TO ROOM 303. PT CALLED AND INFORMED HIM OF TRANSFER. PT LS CLEAR. HR REGULAR. PITTING EDEMA +4. HEEL PROTECTORS REMOVED DUE TO PRESSURE AND LEGS ELEVATED TO PILLOWS. PT CHANGED, JORDANA AREA CLEANED, WOUND CARE COMPLETED. NEW PHOTOS NEEDED. WILL ATTEMPT TO GET NEW PHOTOS IF DRESSING BECOME SOILED. PT SITTING UPRIGHT IN BED, EATING LUNCH. PT ORIENTED TO ROOM. CALL LIGHT IN REACH.
--- NOTE | 2020-01-14 17:08 | NUR ---
SHIFT SUMMARY PT WOUNDS ON SACRUM AND INNER THIGHS REDRESSED & PHOTOGRAPHED. PT VERY EDEMATOUS, BUT STATES SHE BELIEVES IT IS IMPROVING. BURNING WITH UNIRATION CONTINUED. PT STATES JORDANA CARE IS VERY PAINFUL DUE TO EXCORIATIONS. NO ACUTE CHANGES IN ASSESSMENT AT THIS TIME. VSS. WILL CONTINUE TO MONITOR UNTIL TURNOVER IS COMPLETE.
[2020-01-15 04:29] LABS: BASOPHILS ABSOLUTE AUTO 0.11 K/mm3 (0.00-0.23); BASOPHILS PERCENT AUTO 1 % (0-2); EOSINOPHILS ABSOLUTE AUTO 0.02 K/mm3 (0.00-0.68); EOSINOPHILS PERCENT AUTO 0 % (0-6); Hematocrit 25.7 % (33.0-51.0); Hemoglobin 8.6 g/dL (11.5-16.0); IMMATURE GRAN ABSOLUTE AUTO 1.03 K/mm3 (0.00-0.10); IMMATURE GRAN PERCENT AUTO 5 % (0-1); LYMPHOCYTES ABSOLUTE AUTO 1.86 K/mm3 (0.84-5.20); LYMPHOCYTES PERCENT AUTO 9 % (21-46); MONOCYTES ABSOLUTE AUTO 0.94 K/mm3 (0.16-1.47); MONOCYTES PERCENT AUTO 5 % (4-13); Mean Corpuscular HGB 29.4 pg (26.0-34.0); Mean Corpuscular HGB Conc 33.5 g/dL (31.5-36.5); Mean Corpuscular Volume 88 fL (80-100); Mean Platelet Volume 9.1 fL (9.1-12.4); NEUTROPHILS ABSOLUTE AUTO 17.11 K/mm3 (1.96-9.15); NEUTROPHILS PERCENT AUTO 81 % (41-73); Platelet Count 224 K/mm3 (150-400); RDW Standard Deviation 48.4 fL (35.1-46.3); Red Blood Cell Count 2.93 M/mm3 (3.80-5.20); White Blood Cell Count 21.07 K/mm3 (4.00-11.30)
[2020-01-15 04:49] LABS: Albumin, Blood 1.4 g/dL (3.4-5.0); Albumin/Globulin Ratio 0.4 (0.8-1.8); Bilirubin, Total 0.5 mg/dL (0.1-1.0); Bun/Creatinine Ratio 24.1 (12.0-20.0); Calcium, Blood 7.3 mg/dL (8.5-10.1); Creatinine, Blood 1.12 mg/dL (0.40-1.00); Globulin, Blood 3.5 g/dL (2.2-4.0); Magnesium, Blood 1.7 mg/dL (1.6-2.4); Potassium, Blood 2.5 mmol/L (3.5-5.5); Total Protein, Blood 4.9 g/dL (6.4-8.2)
--- NOTE | 2020-01-15 07:42 | NUR ---
PT PCU transfer yesterday. HAd severe sepsis UTI & continues on flagyl & abx to tx. Medicated for pain x 2 with norco 10/325 mg tab. Skin in perianal thighs & sacrum denuded. Wound care done multiple times , encoured bedpan use versus incontinence & PT used bedpan multiple times . Diarrhea multiple times, cdiff neg sample sent.
--- NOTE | 2020-01-15 09:26 | NUR ---
DR REYNOLDS NOTIFIED OF POTASSIUM OF 2.5 ON AM LABS, PER DR REYNOLDS GIVE 40MEQ POTASSIUM PO NOW.
[2020-01-15] MEDS ORDERED: POTCHL20ER PO (10:52)
[2020-01-15] MEDS ORDERED: LEVO750 PO (11:50)
[2020-01-15] MEDS ORDERED: VISBIOME 112.51 EACH PO (11:50)
[2020-01-15] MEDS ORDERED: METR500 PO (11:51)
--- NOTE | 2020-01-15 12:43 | NUR ---
DISCHARGE INSTRUCTIONS REVIEWED WITH PT, IV DC'D INTACT. RX SENT TO [facility] AND HARD SCRIPT FOR NORCO GIVEN TO PT. F/U MADE WITH PCP IN [place] FOR MONDAY. PT CURRENTLY AWAITING RIDE HOME FROM [facility] AT THIS TIME.
--- NOTE | 2020-01-15 13:52 | NUR ---
PT DISCHARGED HOME AT 1341 ESCORTED OUT VIA W/C TO [facility].
--- NOTE | 2020-01-15 16:11 | NUR ---
Initial spiritual care note: Meaghan appeared weak, but tells me she feels better and is happy to be goning home today. She is non-faith, but appeared to benefit from encouragement.
== END 2020-01-15 13:41 | disposition home or self-care (01) | DRG 871 ==
LOC: ER 13:17 → PCU 15:33 → ICUW 16:35 → PCU 01-13 13:30 → MEDS 01-14 11:43 → ENPENDDIS 01-15 11:00 → MEDS 01-15 13:41
PROVIDERS: Emergency Medicine; Internal Medicine; Internal Medicine Critical Care Medicine; ADMIT Internal Medicine
PROC: 05HM33Z Insertion of Infusion Device into Right Internal Jugular Vein, Percutaneous Approach (ICD-10-PCS; principal; 2020-01-10)
PROC: B543ZZA Ultrasonography of Right Jugular Veins, Guidance (ICD-10-PCS; 2020-01-10)
PROC: 3E043XZ Introduction of Vasopressor into Central Vein, Percutaneous Approach (ICD-10-PCS; 2020-01-10)
DX: A41.9 Sepsis, unspecified organism (principal); R65.21 Severe sepsis with septic shock; G92 Toxic encephalopathy; N17.9 Acute kidney failure, unspecified; E87.1 Hypo-osmolality and hyponatremia; I10 Essential (primary) hypertension; K52.9 Noninfective gastroenteritis and colitis, unspecified; J44.9 Chronic obstructive pulmonary disease, unspecified; E66.01 Morbid (severe) obesity due to excess calories; G89.4 Chronic pain syndrome; E86.0 Dehydration; I95.9 Hypotension, unspecified; E87.5 Hyperkalemia; D63.8 Anemia in other chronic diseases classified elsewhere; Z20.828 Contact with and (suspected) exposure to other viral communicable diseases; S30.810A Abrasion of lower back and pelvis, initial encounter; F41.9 Anxiety disorder, unspecified; F17.210 Nicotine dependence, cigarettes, uncomplicated; Z79.82 Long term (current) use of aspirin; Z68.33 Body mass index [BMI] 33.0-33.9, adult
CPT/HCPCS: 0099U; 36415; 36556; 36600; 51702; 70450; 71045; 71250; 74176; 76705; 80048; 80053; 80069; 80202; 81001; 82140; 82607; 82728; 82746; 82803; 82947; 83540; 83550; 83605; 83690; 83735; 83880; 84100; 84145; 84484; 85025; 85610; 86140; 87040; 87086; 87493; 93005; 93010; 93306; 96361-59; 96374-59; 96375-59; 97110; 97163; 97166; 97530; 97535; 99285-25; A9270; C1751; G0480; J0610; J0694; J1265; J1650; J1720; J1940; J1956; J2310; J3370; J3475; J7030; J7040; J7050; J7060; J7070; J7120; U0003

== ENCOUNTER 2020-01-25 17:20 | Inpatient (IN) | payer OTHER ==
[~2020-01-25] VITALS: Ht 157.5 cm; Wt 96.9 kg
[~2020-01-25 17:20] MED LIST changes: +DICLOFENAC 1% TOP; +Diclofenac Sodi50 MG PO; +ERGO400 PO; +FURO40 PO; +LEVO750 PO; +METO25ER PO; +METR500 PO; +NORCO PO; +Nitrofurantoin100 M1 PO; +POTCHL20ER PO; +TIOT18 INH; +VISBIOME 112.51 EACH PO
[2020-01-25 17:54] LABS: BASOPHILS ABSOLUTE AUTO 0.07 K/mm3 (0.00-0.23); BASOPHILS PERCENT AUTO 0 % (0-2); EOSINOPHILS ABSOLUTE AUTO 0.01 K/mm3 (0.00-0.68); EOSINOPHILS PERCENT AUTO 0 % (0-6); IMMATURE GRAN PERCENT AUTO 3 % (0-1); LYMPHOCYTES ABSOLUTE AUTO 0.73 K/mm3 (0.84-5.20); LYMPHOCYTES PERCENT AUTO 2 % (21-46); MONOCYTES ABSOLUTE AUTO 1.27 K/mm3 (0.16-1.47); MONOCYTES PERCENT AUTO 3 % (4-13); Mean Corpuscular HGB 29.3 pg (26.0-34.0); Mean Corpuscular HGB Conc 33.1 g/dL (31.5-36.5); Mean Corpuscular Volume 89 fL (80-100); Mean Platelet Volume 10.2 fL (9.1-12.4); NEUTROPHILS ABSOLUTE AUTO 37.36 K/mm3 (1.96-9.15); NEUTROPHILS PERCENT AUTO 92 % (41-73); Platelet Count 374 K/mm3 (150-400); RDW Coefficient Variation 17.1 % (11.7-14.2); RDW Standard Deviation 52.4 fL (35.1-46.3); Red Blood Cell Count 1.84 M/mm3 (3.80-5.20); White Blood Cell Count 40.74 K/mm3 (4.00-11.30)
[2020-01-25 18:00] LABS: Albumin, Blood 1.3 g/dL (3.4-5.0); Albumin/Globulin Ratio 0.4 (0.8-1.8); Bilirubin, Total 3.8 mg/dL (0.1-1.0); Bun/Creatinine Ratio 10.9 (12.0-20.0); Creatinine, Blood 1.74 mg/dL (0.40-1.00); Potassium, Blood 3.9 mmol/L (3.5-5.5); Total Protein, Blood 4.3 g/dL (6.4-8.2)
[2020-01-25 18:08] LABS: Hemoglobin 5.4 g/dL (11.5-16.0)
[2020-01-25 18:09] LABS: Hematocrit 16.3 % (33.0-51.0)
[2020-01-25 18:18] LABS: International Normalized Ratio 9.31; Prothrombin Time Results 87.8 Sec (9.7-11.5)
[2020-01-25 18:57] LABS: Source, Urine Catheter
[2020-01-25 19:02] LABS: Blood, Urine 1+ (Neg); Glucose Qualitative, Urine Neg (Neg); Ketones, Urine 1+ (Neg); Leukocyte Esterase, Urine 2+ (Neg); Nitrite, Urine Pos (Neg); Protein, Urine 1+ (Neg); Specific Gravity, Urine 1.015 (1.003-1.022); Urobilinogen, Urine 1+ (Normal)
[2020-01-25 19:18] LABS: Appearance, Urine Cloudy (Clear); Bilirubin, Urine 1+ (Neg); Color, Urine Amber (P-Yellow)
[2020-01-25 19:21] LABS: Bacteria Mod /hpf; Squamous Epithelial Cells Many /hpf (Few)
[2020-01-25 19:22] LABS: Hyaline Casts 0-2 /lpf (0-2)
[2020-01-25 19:27] LABS: U Amphetamine Screen Not Detected; U Barbituate Screen Not Detected; U Benzodiazapine Screen DETECTED; U Buprenorphine Screen Not Detected; U Cannabinoids Screen Not Detected; U Cocaine Screen Not Detected; U Methadone Screen Not Detected; U Methamphetamine Screen Not Detected; U Opiates Screen DETECTED; U Oxycodone Screen Not Detected; U Phencyclidine Screen Not Detected; U Propoxyphene Screen Not Detected
[2020-01-25 19:40] LABS: Anion Gap 20 mmol/L (6-16); Blood Urea Nitrogen 17 mg/dL (8-24); Bun/Creatinine Ratio 10.6 (12.0-20.0); CO2, Blood 14 mmol/L (21-32); CPK Creatine Kinase 124 U/L (26-193); Calcium, Blood 6.5 mg/dL (8.5-10.1); Chloride, Blood 89 mmol/L (98-108); Glomerular Filtration Rate 36 (60-); Glucose, Blood 90 mg/dL (70-99); Phosphorus, Blood 4.4 mg/dL (2.5-4.9); Sodium, Blood 123 mmol/L (136-145); Troponin I <0.015 ng/mL (0.000-0.040)
--- NOTE | 2020-01-25 20:08 | NUR ---
ADMIT RECEIVED FROM ER VIA GURNEY. AWAKE AND ALERT. YELLING OUT AND PULLING ON CORDS/LINES. PULLED LEFT AC IV OUT. C/O NOT BEING ABLE TO BREATHE WHILE LYING FLAT. RSC LINE NOTED- NOT SUTURED IN COMPLETELY. LEVOPHED INFUSING @ 30MCG/MIN. VASOPRESSIN @ 0.04UNITS/MIN. EPINEPHRINE @ 10MCG/MIN. 2ND UNIT OF PRBCs INFUSING. O2 @ 3L NC. RESPIRATORY RATE 20s-30s. DYSPNEA NOTED WITH AGITATION. MONITOR SHOWS ST, RATE 100-110s. RICE PATENT AND DRAINING CLOUDY TIANNA URINE. MICHOACANO CLAROS NP AND DR. FRAZIER BOTH AT BEDSIDE. SEE ADMIT ASSESSMENT FOR FULL ASSESSMENT.
[2020-01-25 20:09] LABS: Bicarbonate Venous 11.3 mmol/L (24.0-30.0); PCO2 Venous 26.7 mmHg (38-42); PO2 Venous 52.5 mmHg (38-42); pH Blood Venous 7.18 (7.34-7.37)
[2020-01-25 20:10] LABS: Base Excess Venous -18.5 mmol/L
--- NOTE | 2020-01-25 20:30 | NUR ---
RESTRAINTS PT CONTINUES TO PULL ON LINES AND TUBES. SWATS HANDS AT RN AND MD AND INTERFERES WITH CARE. BILATERAL SOFT WRIST RESTRAINTS ON AT THIS TIME.
--- NOTE | 2020-01-25 20:45 | NUR ---
NG TUBE PT CONTINUES TO BE AGITATED AND UNCOOPERATIVE. MEDICATED WITH ATIVAN 2MG IV PER MICHOACANO CLAROS NP, PRIOR TO PLACING NG. NG PLACED TO RIGHT NARE- PLACEMENT CONFIRMED BY AUSCULTATION FIRST AND THEN BY CHEST XRAY. SMALL AMOUNT OF BLOOD NOTED WITH PLACEMENT. PLACED TO LIS- DRAINING DARK BROWN, COFFEE-GROUND APPEARING FLUID WITH SOME RED BLOOD.
--- NOTE | 2020-01-25 21:38 | NUR ---
BIPAP/PRECEDEX PT PLACED ON BIPAP 8/5, BUR 14, FIO2 30% AT APPROXIMATELY 2130. PRECEDEX STARTED AT THIS TIME AT 0.3MCG/KG/HR.
[2020-01-25 22:07] LABS: Base Excess Venous -20.1 mmol/L; Bicarbonate Venous 10.8 mmol/L (24.0-30.0); PCO2 Venous 24.2 mmHg (38-42); PO2 Venous 64.4 mmHg (38-42); pH Blood Venous 7.16 (7.34-7.37)
[2020-01-25 22:13] LABS: Hematocrit 34.1 % (33.0-51.0); Hemoglobin 11.6 g/dL (11.5-16.0); Mean Corpuscular HGB 30.3 pg (26.0-34.0); Mean Corpuscular Volume 89 fL (80-100); NRBC ABSOLUTE 0.02 K/mm3 (0.00-0.02); Platelet Count 490 K/mm3 (150-400); RDW Standard Deviation 51.7 fL (35.1-46.3); Red Blood Cell Count 3.83 M/mm3 (3.80-5.20)
[2020-01-25 22:15] LABS: White Blood Cell Count 58.51 K/mm3 (4.00-11.30)
[2020-01-25 22:24] LABS: Bun/Creatinine Ratio 10.5 (12.0-20.0); Creatinine, Blood 1.53 mg/dL (0.40-1.00); Potassium, Blood 3.8 mmol/L (3.5-5.5)
[2020-01-25 22:34] LABS: BAND PERCENT MAN 4 % (0-8); BASOPHILS PERCENT MAN 0 % (0-2); EOSINOPHILS PERCENT MAN 0 % (0-6); LYMPHOCYTES ABSOLUTE MAN 2.34 K/mm3 (0.84-5.20); LYMPHOCYTES PERCENT MAN 4 % (21-46); METAMYELOCYTE ABSOLUTE MAN 1.75 K/mm3 (0.00-0.00); METAMYELOCYTE PERCENT MAN 3 % (0-0); MONOCYTES ABSOLUTE MAN 1.75 K/mm3 (0.16-1.47); MONOCYTES PERCENT MAN 3 % (4-13); MYELOCYTE ABSOLUTE MAN 0.58 K/mm3 (0.00-0.00); MYELOCYTE PERCENT MAN 1 % (0-0); NEUTROPHILS ABSOLUTE MAN 52.07 K/mm3 (1.96-9.15); SEG NEUTROPHILS PERCENT MAN 85 % (41-73); TOTAL CELLS COUNTED 100
[2020-01-25 22:37] LABS: International Normalized Ratio 7.97; Prothrombin Time Results 75.8 Sec (9.7-11.5)
--- NOTE | 2020-01-25 22:45 | NUR ---
EPINEPHRINE GTT EPINEPHRINE GTT IS ON STANDBY AT THIS TIME. MONITOR SYSTEM IS SOMETIMES UNABLE TO OBTAIN NIBP D/T WEAK PULSE. DOPPLER PRESSURES READ [id number] SYSTOLIC. WILL CONTINUE TO MONITOR. LEVOPHED CONTINUES @ 30MCG/MIN.
--- NOTE | 2020-01-25 23:10 | NUR ---
LABS/BICARB GTT CRITICAL LAB VALUES CALLED TO DR. FRAZIER. NEW ORDERS RECEIVED FOR BICARB GTT. D5 WITH THREE AMPS OF SODIUM BICARB STARTED AT 150CC/HR PER ORDER.
[2020-01-26 04:12] LABS: Hemoglobin 11.3 g/dL (11.5-16.0); Mean Corpuscular HGB 30.8 pg (26.0-34.0); Mean Corpuscular HGB Conc 36.5 g/dL (31.5-36.5); Mean Platelet Volume 9.8 fL (9.1-12.4); Platelet Count 416 K/mm3 (150-400); RDW Coefficient Variation 15.2 % (11.7-14.2); RDW Standard Deviation 45.5 fL (35.1-46.3); Red Blood Cell Count 3.67 M/mm3 (3.80-5.20); White Blood Cell Count 47.97 K/mm3 (4.00-11.30)
[2020-01-26 04:14] LABS: Base Excess Venous -9.7 mmol/L; Bicarbonate Venous 17.6 mmol/L (24.0-30.0); PCO2 Venous 26.2 mmHg (38-42); PO2 Venous 47.6 mmHg (38-42); pH Blood Venous 7.38 (7.34-7.37)
[2020-01-26 04:20] LABS: Mean Corpuscular Volume 85 fL (80-100)
[2020-01-26 04:32] LABS: Magnesium, Blood 1.4 mg/dL (1.6-2.4)
[2020-01-26 04:33] LABS: Albumin, Blood 1.4 g/dL (3.4-5.0); Albumin/Globulin Ratio 0.4 (0.8-1.8); Bilirubin, Total 6.6 mg/dL (0.1-1.0); Bun/Creatinine Ratio 12.3 (12.0-20.0); Creatinine, Blood 1.3 mg/dL (0.40-1.00); Globulin, Blood 3.5 g/dL (2.2-4.0); Potassium, Blood 3.2 mmol/L (3.5-5.5); Total Protein, Blood 4.9 g/dL (6.4-8.2)
[2020-01-26 04:39] LABS: Prothrombin Time Results 72.3 Sec (9.7-11.5)
[2020-01-26 04:40] LABS: International Normalized Ratio 7.58
[2020-01-26 05:23] LABS: BAND PERCENT MAN 5 % (0-8); BASOPHILS PERCENT MAN 0 % (0-2); EOSINOPHILS PERCENT MAN 0 % (0-6); LYMPHOCYTES ABSOLUTE MAN 1.43 K/mm3 (0.84-5.20); LYMPHOCYTES PERCENT MAN 3 % (21-46); METAMYELOCYTE ABSOLUTE MAN 0.47 K/mm3 (0.00-0.00); METAMYELOCYTE PERCENT MAN 1 % (0-0); MONOCYTES ABSOLUTE MAN 0.47 K/mm3 (0.16-1.47); MONOCYTES PERCENT MAN 1 % (4-13); NEUTROPHILS ABSOLUTE MAN 45.57 K/mm3 (1.96-9.15); SEG NEUTROPHILS PERCENT MAN 90 % (41-73); TOTAL CELLS COUNTED 100
--- NOTE | 2020-01-26 06:30 | NUR ---
SHIFT SUMMARY PT HAS BEEN ON BIPAP SINCE APPROXIMATELY 2129- 04/08, BUR 14, FIO2 21-30%. FIO2 NOW 21%. SEDATED WITH PRECEDEX BETWEEN 0.2-0.3MCG/KG/HR- NOW INFUSING AT 0.2MCG/KG/HR. ALSO MEDICATED WITH ATIVAN 2MG IV X 1 DOSE PRIOR TO NG PLACEMENT. PT MOANS AND MUMBLES INCOHERENTLY. MOVES ALL EXTREMITIES WEAKLY. OCCASIONALLY FOLLOWS SIMPLE COMMANDS. MONITOR SHOWS NSR. BP STABLE WITH LEVOPHED NOW @ 22MCG/MIN AND VASOPRESSIN 0.04UNITS/MIN. EPINEPHRINE GTT BEEN OFF SINCE 2244. BICARB GTT STOPPED THIS AM PER ORDER. PT RECEIVED TOTAL OF 3UNITS PRBC. NG TO LIS WITH 600CC DARK BLACK/BROWN WITH SOME RED NOTED. RICE PATENT AND DRAINING HAZY TIANNA URINE. PICTURES TAKEN OF COCCYX/BUTTOCKS/GLUTEAL FOLDS BREAKDOWN AND OF RIGHT LOWER ARM. DRSGS C/D/I. RSC CENTRAL LINE PATENT EXCEPT WHITE PORT WHICH BARELY FLUSHES. UPDATED TWICE DURING NOC. CRITICAL LABS CALLED TO DR. FRAZIER THIS AM AND NEW ORDERS RECEIVED. WILL REPORT TO ONCOMING RN WHEN AVAILABLE.
--- NOTE | 2020-01-26 07:15 | NUR ---
ASSUMED CARE BEDSIDE REPORT RECIEVED. PT IS LAYING IN BED, ON BIPAP 8/5, FIO2 21%. PT MOANS OUT TO NOXIOUS STIMULI, DOES NOT FOLLOW COMMANDS OR SPEAK MEANINGFUL WORDS AT THIS TIME. PT TURNS HEAD SIDE TO SIDE WITH NOXIOUS STIMULI AND WHEN ADJUSTING BIPAP. NGT IN PLACE TO LIS WITH BROWN/BLOOD TINGED OUTPUT NOTED. VITAL SIGNS STABLE WITH VASOPRESSORS INFUSING. CL IN PLACE TO RIGHT SUBCLAVIAN. LEVOPHED INFUSING AT 22 MCG/MIN, VASOPRESSIN AT 0.04 UNITS/MIN, PRECEDEX 0.2 MCG/KG/MIN, AND NS TKO. RICE IN PLACE WITH YELLOW/TIANNA OUTPUT NOTED. SBW RESTRAINTS IN PLACE. PT WITH MULTIPLE ABRASIONS/SCABS/BRUISES. SEE PHOTOS IN CHART FOR MORE SKIN ASSESSMENT INFO. WILL CONTINUE TO MONITOR.
--- NOTE | 2020-01-26 10:56 | NUR ---
DR FRAZIER/UPDATE DR FRAZIER HERE TO SEE PT. UPDATED TO PT CONDITION, NO NEW CHANGES TO PLAN OF CARE. PT DOING WELL OFF BIPAP ON 3L O2 NC. LEVOPHED SLOWLY ABLE TO BE TITRATED DOWN. PT REMAINS CONFUSED AND DROWSEY. PT SPOUSE CALLED AND UPDATED. WILL CONTINUE TO MONITOR.
--- NOTE | 2020-01-26 14:45 | NUR ---
DR LOGAN FORD HERE TO SEE PT. STATES PT NOT A SURGICAL CANIDATE PER HIS ASSESSMENT. NO NEW ORDERS AT THIS TIME.
[2020-01-26 15:35] LABS: Percent Saturation 65.7 % (15.0-50.0)
--- NOTE | 2020-01-26 18:27 | NUR ---
SHIFT SUMMARY NO ACUTE CHANGES THIS SHIFT. PT HAS REMAINED SOMNOLENT DESPITE PRECEDEX BEING ON STANDBY SINCE THIS AM. PT WILL MUMBLE SOME WORDS. PT UNABLE TO FOLLOW DIRECTIONS APPROPRIATELY. PT HAS BEEN ON 3L O2 NC MOST OF THE SHIFT, PT PLACED BACK ON BIPAP THIS EVENING SETTINGS 8/5, FIO2 21%. VITAL SIGNS HAVE REMAINED STABLE. LEVOPHED TITRATED DOWN TO 16 MCG/MIN, AND VASOPRESSIN REMAINS AT 0.04 UNITS/MIN. CL TO RIGHT SC REMAINS C/D/I. NGT REMAINS IN PLACE WITH MINIMAL OUTPUT THIS SHIFT. RICE REMAINS IN PLACE WITH GOOD AMOUNT OF TIANNA URINE OUTPUT THIS SHIFT. SBW RESTRAINTS REMAIN IN PLACE. PT SPOUSE UPDATED MULTIPLE TIMES THIS SHIFT. WILL CONTINUE TO MONITOR AND REPORT OFF TO ONCOMING RN.
--- NOTE | 2020-01-26 20:43 | NUR ---
CARE ASSUMED CARE AND REPORT ASSUMED FROM MICHOACANO Luis RN. PT DIFFICULT TO AROUSE; SOMNOLENT. PT DOES RESPOND TO PAINFUL AND OCCASIONAL VERBAL STIMULI. MOANS DURING TURNS. NSR, HR 80S. PT ON BIPAP 8/5, FIO2 21%. LUNG SOUNDS CLEAR IN UPPER BROOKS AND COARSE IN LOWER BROOKS. HOB ELEVATED AND PT TURNED Q2H. LEVOPHED GTT INFUSING AT 16; WILL ATTEMPT TO DECREASE IF TOLERATED. VASOPRESSIN GTT INFUSING. TEMP 99.3; WILL MONITOR. BUE RESTRIANED TO PROTECT ETT AND LINES. PT EDEMATOUS IN ALL EXTREMITIES WITH PITTING EDEMA IN BLE. EXTREMITIES ELEVATED. RICE CATH SECURED. NGT SECURED AND ATTACHED TO LIWS; DARK, SIRISHA COLOR OUTPUT. WILL CONTINUE TO MONITOR.
[2020-01-26 21:26] LABS: Vancomycin, Trough 15.4 ug/mL (5.0-10.0)
--- NOTE | 2020-01-27 00:14 | NUR ---
REASSESSMENT PT REMAINS ON BIPAP 04/08, 21%. LUNG SOUNDS CLEAR AT THIS TIME. LEVOPHED GTT AT 14 MCG/MIN AND VASOPRESSIN CONTINUES TO INFUSE. BILAT FEET ARE COLD TO THE TOUCH AND DUSKY IN COLOR. PEDAL PULSES HEARD WITH DOPPLER. PT REMAINS IN BUE RESTRAINTS. REMAINS SOMNOLENT AND WITHDRAWN BUT WILL RESPOND TO PAINFUL AND VERBAL STIMULI. WILL CONTINUE TO MONITOR.
[2020-01-27 03:15] LABS: Bicarbonate Venous 20.2 mmol/L (24.0-30.0); PCO2 Venous 25.1 mmHg (38-42); PO2 Venous 47.2 mmHg (38-42); pH Blood Venous 7.46 (7.34-7.37)
[2020-01-27 03:16] LABS: BASOPHILS ABSOLUTE AUTO 0.09 K/mm3 (0.00-0.23); BASOPHILS PERCENT AUTO 0 % (0-2); EOSINOPHILS ABSOLUTE AUTO 0.04 K/mm3 (0.00-0.68); EOSINOPHILS PERCENT AUTO 0 % (0-6); Hematocrit 28.6 % (33.0-51.0); Hemoglobin 10.4 g/dL (11.5-16.0); IMMATURE GRAN ABSOLUTE AUTO 0.91 K/mm3 (0.00-0.10); IMMATURE GRAN PERCENT AUTO 2 % (0-1); LYMPHOCYTES ABSOLUTE AUTO 1.36 K/mm3 (0.84-5.20); LYMPHOCYTES PERCENT AUTO 4 % (21-46); MONOCYTES ABSOLUTE AUTO 0.85 K/mm3 (0.16-1.47); MONOCYTES PERCENT AUTO 2 % (4-13); Mean Corpuscular HGB 30.1 pg (26.0-34.0); Mean Corpuscular HGB Conc 36.4 g/dL (31.5-36.5); Mean Corpuscular Volume 83 fL (80-100); NEUTROPHILS ABSOLUTE AUTO 34.43 K/mm3 (1.96-9.15); NEUTROPHILS PERCENT AUTO 91 % (41-73); NRBC ABSOLUTE 0.02 K/mm3 (0.00-0.02); NRBC Auto 0.1 /100 WBC (0.0-0.2); Platelet Count 306 K/mm3 (150-400); RDW Coefficient Variation 15.3 % (11.7-14.2); RDW Standard Deviation 44.1 fL (35.1-46.3); Red Blood Cell Count 3.45 M/mm3 (3.80-5.20); White Blood Cell Count 37.68 K/mm3 (4.00-11.30)
[2020-01-27 03:31] LABS: Bun/Creatinine Ratio 16.2 (12.0-20.0); Calcium, Blood 7.9 mg/dL (8.5-10.1); Creatinine, Blood 1.11 mg/dL (0.40-1.00); International Normalized Ratio 1.94; Magnesium, Blood 1.2 mg/dL (1.6-2.4); Phosphorus, Blood 3.2 mg/dL (2.5-4.9); Potassium, Blood 3.7 mmol/L (3.5-5.5)
--- NOTE | 2020-01-27 06:12 | NUR ---
SHIFT SUMMARY PT SLEPT ENTIRE SHIFT EXCEPT WHEN AWAKENED FOR TURNS. LEVOPHED GTT INFUSING AT 10 MCG. VASOPRESSIN GTT TURNED OFF AT 0510. NGT REMAINS SECURED AND ATTACHED TO LIWS. PT HAD DARK, SIRISHA COLORED OUTPUT. TEMP NORMALIZED AND PT NOW STATING SHE IS COLD. REMAINED IN NSR, HR 70-80S ENTIRE SHIFT. WORE BIPAP MOST OF NIGHT; CHANGED TO NC 3L AT 0400. MAGNESIUM REPLACEMENT INFUSING THIS AM. PRODUCED NO STOOL DURING SHIFT. HOB ELEVATED AND PT TURNED Q2H. WILL GIVE BEDSIDE, HANDOFF REPORT TO DAY RN.
--- NOTE | 2020-01-27 09:30 | NUR ---
ASSUMED CARE OF PT AT 0700. REPORT FROM VILMA MARINA. PT RESPONSIVE TO VERBAL STIMULI. ANSWERS QUESTIONS APPROPRIATELY, KNOWS YEAR AND LOCATION. PT MOANS AND C/O PAIN c ALL CARE. STATES SHE HAS PAIN IN HER BACK, CHRONIC, 05/14. DENIES ABD PAIN OR NAUSEA. NGT TO RIGHT NARE, DARK BROWN EMESIS, LIS. PT TENDER c PALPATION, HYPOACTIVE BT. LEVOPHED AND VASOPRESSIN INFUSING, GOAL MAP>[address] HIGGINS. SR c RATE 80-90'S. LUNGS CLEAR. 2L O2 VIA NC. PRESSURE ULCERS TO COCCXY AND POSTERIOR THIGHS, MEIPLEX IN PLACE. 3 CM WOUND TO ANTERIOR LEFT FOOT, SCAB c ANIMAL HAIR, CLEANED, PT UNAWARE OF HOW SHE OBTAINED THIS WOUND, SCATTERED SCABS TO RIGHT ARM. RICE PATENT, DRAINING TIANNA CLOUDY URINE TO GRAVITY. CENTRAL LINE TO RIGHT SUBCLAVIAN. DRESSING C/D/I. WILL CONTINUE TO MONITOR.
--- NOTE | 2020-01-27 18:01 | NUR ---
SHIFT SUMMARY PT A&OX 3. ANSWERS ALL QUESTIONS APPROPRIATELY. MAKES ONE STATEMENT REGARDING BEING IN A VOODOO, WHEN REORIENTED PT STATES "I KNOW IM IN THE HOSPITAL." LEVOPHED INFUSING AT 12 MCG/MIN, VASOPRESSIN ON STANDBY. ALBUMIN INFUSED THIS SHIFT, BANANA BAG INFUSING AT 200 ML/HR. FENTANYL GIVEN PRN FOR PAIN. PT REPORTS CHRONIC BACK PAIN. NGT c RUST/BROWN EMESIS c BLOOD SPECKS, 50 ML OUT THIS SHIFT. RICE PATENT AND DRAINING TO GRAVITY, TIANNA, CLOUDY URINE OUT, 725 ML. PT CONTINUES TO BE EDEMATOUS TO EXTREMITIES. BED BATH COMPLETED AND MEIPLEXS CHANGED, q 2 HOUR TURNS. WILL CONTINUE TO MONITOR UNTIL REPORT TO ONCOMING NURSE.
--- NOTE | 2020-01-27 20:06 | NUR ---
CARE ASSUMED CARE AND REPORT ASSUMED FROM MARIA VICTORIA Staley RN. PT MOANING OUT IN PAIN; C/O PAIN TO BACK. FENTANYL 50 MCG IVP GIVEN. A/O X PERSON AND PLACE. PT STATES SHE IS HAVING DIFFICULTY BREATHING. HER LUNG SOUNDS ARE COARSE AND MOIST THROUGHOUT ALL BROOKS AND SHE HAS PITTING EDEMA IN ALL EXTREMITIES. SPO2 90% ON 3L NC. MD HIGGINS CALLED AND T.O. FOR LASIX 40 MG GIVEN. O2 INCREASED TO 4L AT THIS TIME. WILL MONITOR URINE OUTPUT AND O2 STATUS CLOSELY, ALONG WITH LUNG SOUNDS. NSR, HR 90-110. LEVOPHED GTT INFUSING AT 11 MCG; WILL TITRATE ABLE. BANANA BAG COMPLETED. NGT SECURED TO LIWS; OUTPUT REMAINS DARK, SIRISHA COLOR. EXTREMITIES ELEVATED TO HELP RELIEVE EDEMA. ORAL CARE COMPLETED. AFEBRILE. WILL CONTINUE TO MONITOR.
--- NOTE | 2020-01-27 23:29 | NUR ---
REASSESSMENT PT RECEIEVED LASIX 40 MG IVP AND HAS PUT APPROX 500 URINE OUT. LUNG SOUNDS REMAIN COARSE AND MOIST IN ALL BROOKS. PT ALTERNATING BETWEEN NC 4L AND BIPAP 8/5, 35%. DOES NOT TOLERATE BIPAP FOR VERY LONG BEFORE SHE BEGINS YELLING TO HAVE IT REMOVED. PT CONTINUALLY MOANING AND WHEN ASKED WHY, SHE STATES SHE IS SICK. FENTANYL IVP GIVEN FOR PAIN NEEDED. LEVOPHED GTT INFUSING AT 8 MCG. NGT REMAINS SECURED AND ATTACHED TO LIWS. AFEBRILE. WILL CONTINUE TO MONITOR.
[2020-01-28 02:58] LABS: Adenovirus F 40/41 Not Detected (NOT DETECT); Astrovirus Not Detected (NOT DETECT); Campylobacter Sp Not Detected (NOT DETECT); Cryptosporidium Not Detected (NOT DETECT); Cyclospora Cayetanensis Not Detected (NOT DETECT); E. Coli O157 Not Detected (NOT DETECT); Entamoeba Histolytica Not Detected (NOT DETECT); Enteroaggregative E. coli-EAEC Not Detected (NOT DETECT); Enteropathogenic E. coli-EPEC Not Detected (NOT DETECT); Enterotoxigenic E. coli-ETEC Not Detected (NOT DETECT); Giardia Lamblia Not Detected (NOT DETECT); Norovirus GI/GII Not Detected (NOT DETECT); Plesiomonas Shigelloides Not Detected (NOT DETECT); Rotavirus A Not Detected (NOT DETECT); Salmonella Sp Not Detected (NOT DETECT); Sapovirus Not Detected (NOT DETECT); Shiga Toxin-prod E. coli-STEC Not Detected (NOT DETECT); Shigella/Enteroin E. coli-EIEC Not Detected (NOT DETECT); Vibrio Cholerae Not Detected (NOT DETECT); Vibrio Sp Not Detected (NOT DETECT); Yersinia Enterocolitica Not Detected (NOT DETECT)
[2020-01-28 03:49] LABS: BASOPHILS ABSOLUTE AUTO 0.03 K/mm3 (0.00-0.23); BASOPHILS PERCENT AUTO 0 % (0-2); EOSINOPHILS PERCENT AUTO 0 % (0-6); Hematocrit 21.3 % (33.0-51.0); Hemoglobin 7.4 g/dL (11.5-16.0); IMMATURE GRAN ABSOLUTE AUTO 0.45 K/mm3 (0.00-0.10); IMMATURE GRAN PERCENT AUTO 2 % (0-1); LYMPHOCYTES ABSOLUTE AUTO 0.67 K/mm3 (0.84-5.20); LYMPHOCYTES PERCENT AUTO 3 % (21-46); MONOCYTES ABSOLUTE AUTO 0.67 K/mm3 (0.16-1.47); MONOCYTES PERCENT AUTO 3 % (4-13); Mean Corpuscular HGB 30.5 pg (26.0-34.0); Mean Corpuscular HGB Conc 34.7 g/dL (31.5-36.5); Mean Corpuscular Volume 88 fL (80-100); Mean Platelet Volume 10.4 fL (9.1-12.4); NEUTROPHILS ABSOLUTE AUTO 25.34 K/mm3 (1.96-9.15); NEUTROPHILS PERCENT AUTO 93 % (41-73); Platelet Count 179 K/mm3 (150-400); RDW Coefficient Variation 16.4 % (11.7-14.2); RDW Standard Deviation 50.9 fL (35.1-46.3); Red Blood Cell Count 2.43 M/mm3 (3.80-5.20); White Blood Cell Count 27.16 K/mm3 (4.00-11.30)
--- NOTE | 2020-01-28 03:49 | NUR ---
REASSESSMENT PT HAD LARGE BOWEL MOVEMENT AND STOOL SPECIMEN SENT TO LAB. C. DIFF NEGATIVE; ISOLATION DISCONTINUED. MEPILEX DRESSINGS ON POSTERIOR LEGS AND BUTTOCKS CHANGED. PT CONTINUES TO NEED BIPAP FOR SHORT TIME AND THEN BEGINS TO PULL IT OFF. WEARING 4L NC WHEN NOT USING BIPAP; SPO2 93%. LUNG SOUNDS REMAIN COARSE WITH WHEEZES IN UPPER BROOKS. LEVOPHED GTT DECREASED TO 5 MCG. PT GIVEN FENTANYL PRN. LABS PENDING. WILL CONTINUE TO MONITOR.
[2020-01-28 04:02] LABS: International Normalized Ratio 1.33
[2020-01-28 04:09] LABS: Albumin, Blood 2.8 g/dL (3.4-5.0); Albumin/Globulin Ratio 1.1 (0.8-1.8); Alk Phos 99 U/L (50-136); Anion Gap 15 mmol/L (6-16); Aspartate Aminotrans (AST/SGOT 18 U/L (12-37); Bilirubin, Total 3.1 mg/dL (0.1-1.0); Blood Urea Nitrogen 23 mg/dL (8-24); Bun/Creatinine Ratio 23.4 (12.0-20.0); CO2, Blood 20 mmol/L (21-32); Calcium, Blood 8.2 mg/dL (8.5-10.1); Chloride, Blood 92 mmol/L (98-108); Creatinine, Blood 0.98 mg/dL (0.40-1.00); Globulin, Blood 2.5 g/dL (2.2-4.0); Glomerular Filtration Rate >60 (60-); Glucose, Blood 133 mg/dL (70-99); Phosphorus, Blood 3.2 mg/dL (2.5-4.9); Sodium, Blood 127 mmol/L (136-145); Total Protein, Blood 5.3 g/dL (6.4-8.2)
[2020-01-28 04:16] LABS: Alanine Aminotransfer (ALT/SGP <6 U/L (12-78)
--- NOTE | 2020-01-28 05:45 | NUR ---
SHIFT SUMMARY PT HAD BOWEL MOVEMENT 1 X DURING NIGHT. LEVOPHED GTT DOWN TO 5 MCG. VASOPRESSIN GTT HAS REMAINED OFF ENTIRE SHIFT. PT GIVEN LASIX AT START OF SHIFT. FENTANYL IVP GIVEN NEEDED FOR PAIN CONTROL. WHEN PT IS AWAKE, SHE CONTINUALLY MOANS. ALTERATED BETWEEN 4L NC AND BIPAP 8/5, 35% DURING NIGHT. NGT REMAINED ON LIWS; 50 ML DARK, SIRISHA COLORED OUTPUT. PT TURNED Q2H AND HOB ELEVATED. POTASSIUM REPLACEMENT INFUSING. WILL GIVE BEDSIDE, HANDOFF REPORT TO DAY RN.
--- NOTE | 2020-01-28 08:20 | NUR ---
ASSUMED CARE: REPORT RECEIVED FROM CHENCHO Moreno RN. ASSUMED CARE OF THIS PT AT APPROX 0700. ON ASSESSMENT, THE PT IS RESTING QUIETLY. SHE IS TOLERATING BIPAP WELL AT THIS TIME BUT DOES MOAN/ CALL OUT AT TIMES R/T PAIN. SHE IS UNABLE TO DESCRIBE HER PAIN OR RATE IT NUMERICALLY WHEN ASKED, MEDS PER EMAR. LS ARE COARSE T/O, WHEEZING IN UPPER LOBES. PT CURRENTLY USING BIPAP W/ SETTINGS 8/5 & 35% FIO2, OTHERWISE URING 4L NC PER REPORT, W/ O2 SATS > 92%. MONITOR SHOWS SR W/ HR 90s, INCREASED W/ AGITATION. BP STABLE W/ LEVOPHED DRIP INFUSING, CURRENTLY AT 2 MCG/MIN. NGT IN PLACE TO LIS, DRAINING RUST COLORED OUTPUT. TEMP RICE PATENT/ DRAINING CLOUDY YELLOW URINE. SKIN CONDITION VERY POOR W/ MULTIPLE PRESSURE ULCERS NOTED TO BUTTOCKS, COCCYX & POSTERIOR THIGHS. SHE IS VERY EDEMATOUS & SKIN IS FRAGILE T/O. WILL CONTINUE TO MONITOR & UPDATE NEEDED.
--- NOTE | 2020-01-28 10:00 | NUR ---
DR HIGGINS: PROVIDER AT BEDSIDE TO EVAL PT. HE STS THAT HE HAS CONTACTED DR ROME IN REGARDS TO GI CONSULT THIS AM. PLAN IS TO GIVE 1 UNIT PRBCs R/T DECREASED H&H THIS AM. LASIX ALSO ORDERED R/T FLUID OVERLOAD. ORDERS PLACED.
--- NOTE | 2020-01-28 17:16 | NUR ---
01/28/20 1717 Grzegorz Piedra History, Chart, Medications and Allergies reviewed before start of procedure.MONITOR INTACT WITH CONTINUOUS PULSE OXIMETRY AND INTERMITTENT BP.3-LEAD EKG REVIEWED WITH PHYSICIAN PRIOR TO START OF PROCEDURE.O2 VIA N/C INTACT THROUGHOUT SEDATION/PROCEDURE. See Anesthesia record.
--- NOTE | 2020-01-28 19:18 | NUR ---
SHIFT SUMMARY: NO ACUTE CHANGES SINCE PRIOR UPDATES. EGD COMPLETED PER DR ROME THIS EVENING. HE WOULD LIKE PT TO HAVE EITHER NGT OR DOBHOFF FEEDING TUBE PLACED IN AM WHEN DIETARY ADDRESSES CONSULTATION ORDER. LS ARE COARSE & WHEEZING T/O, PT REMAINS ON BIPAP FOR MOST OF THIS SHIFT, BUT HAS TOLERATED 4L NC WELL SINCE APPROX 1700. MONITOR SHOWS SR W/ HR 90s ON AVG, INCREASED W/ PAIN. PT REMAINS NPO W/ NGT REMOVED FOR EGD. TEMP RICE PATENT/ DRAINING CLOUDY YELLOW URINE. SKIN CONDITION OVERALL UNCHANGED & Q2H REPOSITIONING TO PREVENT FURTHER INJURY. WILL CONTINUE TO MONITOR & REPORT OFF TO ONCOMING RN.
--- NOTE | 2020-01-28 20:46 | NUR ---
ASSUMPTION OF CARE: PT SOLMNOLENT, OCCASIONALLY MOANS AND WIMPERS. AFEBRILE. IN SR, HR IN THE 100-110S. SBP 90-120. MAP >60. ON BIPAP. SETTINGS ARE 8/5, FIO2 35%. LUNG SOUNDS ARE COARSE. SPO2 >90%. BT HYPOACTIVE. PT IS NPO, PLAN IS TO PLACE NG/DOBHOFF IN AM AND BEGIN TF. CL IN R SUBCLAVIAN. PATENT AND INFUSING. DUE TO CL PLACEMENT NEAR ARMPIT WHITE AREA OF DRESSING HAS LIFTED. HOWEVER CL IS COVERED WITH CHG. T RICE IN PLACE DRAINING TO GRAVITY. LEVOPHED RUNNING AT 2MCG/MIN. BANANA BAG IS ALSO INFUSING. PT HAS MULTIPLE WOUNDS PRESENT PRIOR TO ADMISSION. DRESSING ON COCCYX CHANGED. SOME SANGIOUNESS EXUDATE. SLOUGH IS PRESENT. DRESSINGS TO GLUTEAL FOLDS C/D/I. SOME REDNESS ON R HEEL. MEPILEX HEEL PROTECTOR PLACED. PT ALSO HAS GENERALIZED ALL OER EDEMA PRESENT WITH DEEP PITTING IN SOME AREAS. WILL CONTINUE TO MONITOR
--- NOTE | 2020-01-28 23:57 | NUR ---
NO ACUTE CHANGES THUS FAR. SBP AND MAP STABLE ON LEVOPHED AT 2MCG. WILL CONTINUE TO MONITOR
[2020-01-29 04:21] LABS: BASOPHILS ABSOLUTE AUTO 0.04 K/mm3 (0.00-0.23); BASOPHILS PERCENT AUTO 0 % (0-2); EOSINOPHILS ABSOLUTE AUTO 0.01 K/mm3 (0.00-0.68); EOSINOPHILS PERCENT AUTO 0 % (0-6); Hematocrit 26.1 % (33.0-51.0); Hemoglobin 8.8 g/dL (11.5-16.0); IMMATURE GRAN PERCENT AUTO 1 % (0-1); LYMPHOCYTES ABSOLUTE AUTO 0.45 K/mm3 (0.84-5.20); LYMPHOCYTES PERCENT AUTO 2 % (21-46); MONOCYTES PERCENT AUTO 3 % (4-13); Mean Corpuscular HGB 29.7 pg (26.0-34.0); Mean Corpuscular HGB Conc 33.7 g/dL (31.5-36.5); Mean Corpuscular Volume 88 fL (80-100); Mean Platelet Volume 10.3 fL (9.1-12.4); NEUTROPHILS PERCENT AUTO 94 % (41-73); Platelet Count 141 K/mm3 (150-400); RDW Coefficient Variation 16.8 % (11.7-14.2); RDW Standard Deviation 51.8 fL (35.1-46.3); Red Blood Cell Count 2.96 M/mm3 (3.80-5.20)
[2020-01-29 04:34] LABS: Albumin, Blood 2.4 g/dL (3.4-5.0); Anion Gap 16 mmol/L (6-16); Blood Urea Nitrogen 24 mg/dL (8-24); Bun/Creatinine Ratio 25.4 (12.0-20.0); CO2, Blood 18 mmol/L (21-32); Calcium, Blood 7.9 mg/dL (8.5-10.1); Chloride, Blood 100 mmol/L (98-108); Creatinine, Blood 0.95 mg/dL (0.40-1.00); Glomerular Filtration Rate >60 (60-); Glucose, Blood 139 mg/dL (70-99); Potassium, Blood 2.8 mmol/L (3.5-5.5); Sodium, Blood 134 mmol/L (136-145)
--- NOTE | 2020-01-29 04:55 | NUR ---
CALL PLACED TO DR ODONNELL RE PT'S POTASSIUM OF 2.8. AWAITING CALL BACK
--- NOTE | 2020-01-29 05:29 | NUR ---
ORDER RECEIVED FROM DR ROSE. KCL 40MEQ IV.
--- NOTE | 2020-01-29 05:53 | NUR ---
SHIFT SUMMARY: PT OCCASIONALLY MOANS OUT. DILAUDID GIVEN FOR PAIN RELIEF. PT REPOSITIONED FREQUENTLY. SBP SOMEWHAT SOFT SO LEVOPHED INCREASED TO 3MCG WITH GOOD EFFECT AND MAP >90. PT STAYED ON BIPAP. FIO2 INCREASED TO 35% AFTER PT DESAT TO MID TO HIGH 80S AND DID NOT RECOVER. PT CURRENTLY RESTING QUIETLY. WILL PASS REPORT TO ONCOMING SHIFT
--- NOTE | 2020-01-29 08:02 | NUR ---
ASSESSMENT- PT MOANING AT TIMES. AWAKENS TO NAME, OPENS EYES, ABLE TO ANSWER WHAT HER NAME IS AND THAT SHE IS IN HOSPITAL. STATES FEET HURT, UNABLE TO DESCRIBE PAIN. QUIET NOW WHEN UNDISTURBED. BIPAP ON-ATTEMPT TO TAKE OFF FOR ORAL CARE, DESATURATED TO 82% ON 5L/MIN NC, REPLACED WITH RECOVERY. LUNGS COARSE, CONGESTED COUGH. NSR. LEVOPHED DECREASED TO 2 MCG/MIN. LEFT SC CENTRAL LINE DI, NS TKO. K REPLACEMENT INFUSING. AFEBRILE. REPOSITIONED. MULTIPLE SCABS ARMS, GENERALIZED EDEMA. SKIN VERY TENDER TO TOUCH ALL OVER. DENIES NAUSEA, ABDOMEN LARGE WITH ONLY RARE BOWEL SOUNDS. UO LOW VIA RICE, DARK TIANNA. SCDS ON.
[2020-01-29 08:08] LABS: COMPLEMENT C3, SERUM 38 mg/dL (82-167); COMPLEMENT C4, SERUM 7 mg/dL (14-44); HBSAG SCREEN Negative (Negative); HEP B CORE AB, TOT Negative (Negative); HEP C VIRUS AB 0.2 (0.0-0.9)
--- NOTE | 2020-01-29 09:55 | NUR ---
PT CRYING, C/O PAIN IN FEET AND STOMACH. UNABLE TO REASSURE. REQUESTING BIPAP OFF-DESATS TO 81% WITH NASAL CANNULA. EXPLAINED PLAN OF CARE, TOLERATING BIPAP NOW, RESTING AFTER PAIN RX. LEVOPHED AT 1 MCG/MIN
--- NOTE | 2020-01-29 10:40 | NUR ---
PT MOANING, C/O SEVERE PAIN RATES LEVEL 8-"STOMACH AND FEET". RX GIVEN. TURN FOR BATH. CHANGED TO OXYMIZER AT 12 L/MIN-SATURATIONS STABLE. DR. HIGGINS HERE-ASSESSED PT. CALLED PT'S FOR PT AND SHE TALKED TO HIM BRIEFLY.
--- NOTE | 2020-01-29 13:27 | NUR ---
DR. HIGGINS HERE-PLANS FOR ALBUMIN TODAY, DIURESIS. CHEST XRAY DONE-QUESTION PNEUMONIA. CT ORDERED TO ASSESS ABDOMEN, RARE BOWEL SOUNDS, ABDOMEN VERY TENDER. HOLD TUBE FEED FOR NOW. TOLERATING OXYMIZER. SLEEPING AFTER PAIN RX WITHOUT MOANING
--- NOTE | 2020-01-29 16:03 | NUR ---
TO CT IN BED AND RETURNED. TOLERATED FAIR. BP 90'S, MAP >60. LEVOPHED OFF. RESPIRATIONS MORE LABORED. ON BIPAP WITH ADEQUATE TIDAL VOLUMES. DECONDITIONED, GENERALIZED WEAKNESS. C/O ITCHINESS, SKIN VERY TENDER TO TOUCH ALL OVER.
--- NOTE | 2020-01-29 17:19 | NUR ---
Pt on increased bipap support. Deconditioned patient with poor ventilation. Pt able to take a few sips with coaching. Feels like skin is intching redness noted to legs. multiple sores poor to feel and skin. Pt able to answer yes to being tactile sensitive, denies visual disturbance or ringing in ears. advised pt she is safe here and we will help her. RT and nursing sat her up put TV on for her and encouraged her to try to watch tv and focus. Review of medications and symptoms with nursing. unkown if reness and itching are new and could be from medication. Review of prn medication options with nursing. Will follow up with family and cahplian for addiction support.
--- NOTE | 2020-01-29 18:19 | NUR ---
PT RESTING NOW QUIETLY. AWAKENS EASILY TO NAME, MOANS WHEN AWAKE. REPOSITIONED, SMALL GREENISH STOOL, PERIAREA DRESSINGS REMOVED, CLEANED AND LOTION ON. POSITIONED OFF PRESSURE AREA TO RIGHT SIDE. UPDATE TO DR. HIGGINS. AND DR. ROME. AFEBRILE. CENTRAL LINE INTACT. NSR.
--- NOTE | 2020-01-29 18:46 | NUR ---
RESPIRATIONS LABORED, RR 20-24 BPM, SOME HEAD BOBBING WITH RESPIRATIONS. IS AWAKE, ALERT, ABLE TO ANSWER FEW QUESTIONS. DR. ROME AND DR. HIGGINS ASSESSED PT. WILL CONTINUE TO MONITOR. SINUS TACH. TIDAL VOLUMES UP TO 700'S ON BIPAP.
[2020-01-29 19:07] LABS: ANTI-DSDNA ANTIBODIES <1 IU/mL (0-9); RNP ANTIBODIES <0.2 AI (0.0-0.9); SJOGREN'S ANTI-SS-A <0.2 AI (0.0-0.9); SJOGREN'S ANTI-SS-B <0.2 AI (0.0-0.9); SMITH ANTIBODIES <0.2 AI (0.0-0.9)
--- NOTE | 2020-01-29 20:00 | NUR ---
ASSUMPTION OF CARE: PT SOLMNOLENT, MOANS OUT. LUNG SOUNDS COARSE/CRACKLY. ON BIPAP SETTINGS 8/5/50%. VSS-LEVOPHED OFF. SBP 90-110S.HR IN THE 90-100. BT PRESENT, HYPOACTIVE. TEMP RICE IN PLACE DRAINING TO GRAVITY. COCCYX WOUND OPEN TO AIR. CRAIG REMPLACED AND NEW MEPILEX PLACED ON COCCYX. HEEL PROTECTOR IN PLACE. ABRASION/SCAB ON RIGHT ARM WEEPING. MEPILEX PLACED. CL IN R SUBCLAVIAN REMAINS INF WITH NS TKO. NG/DOBHOFF PLACEMENT ON HOLD FOR NOW PER DR HIGGINS. WILL CONTINUE TO MONITOR
[2020-01-29 21:47] LABS: Anion Gap 20 mmol/L (6-16); Blood Urea Nitrogen 22 mg/dL (8-24); Bun/Creatinine Ratio 24.4 (12.0-20.0); CO2, Blood 15 mmol/L (21-32); Calcium, Blood 7.9 mg/dL (8.5-10.1); Chloride, Blood 102 mmol/L (98-108); Glomerular Filtration Rate >60 (60-); Glucose, Blood 134 mg/dL (70-99); Potassium, Blood 2.7 mmol/L (3.5-5.5); Sodium, Blood 137 mmol/L (136-145)
[2020-01-29 21:49] LABS: Vancomycin, Trough 26.9 ug/mL (5.0-10.0)
--- NOTE | 2020-01-29 21:57 | NUR ---
POTASSIUM 2.7 AFTER ONE BAG OF 20MEQ IV POTASSIUM HUNG. CALL PLACED TO DR HIGGINS REGARDING REPEAT POTASSIUM DRAW AFTER 2ND BAG OF KCL. ORDERS ARE TO WAIT FOR MORNING LAB RESULTS.
[2020-01-30 04:00] LABS: BASOPHILS ABSOLUTE AUTO 0.02 K/mm3 (0.00-0.23); BASOPHILS PERCENT AUTO 0 % (0-2); EOSINOPHILS ABSOLUTE AUTO 0.03 K/mm3 (0.00-0.68); EOSINOPHILS PERCENT AUTO 0 % (0-6); Hematocrit 23.9 % (33.0-51.0); Hemoglobin 8.1 g/dL (11.5-16.0); IMMATURE GRAN ABSOLUTE AUTO 0.23 K/mm3 (0.00-0.10); IMMATURE GRAN PERCENT AUTO 1 % (0-1); LYMPHOCYTES ABSOLUTE AUTO 0.42 K/mm3 (0.84-5.20); LYMPHOCYTES PERCENT AUTO 2 % (21-46); MONOCYTES ABSOLUTE AUTO 0.62 K/mm3 (0.16-1.47); MONOCYTES PERCENT AUTO 3 % (4-13); Mean Corpuscular HGB Conc 33.9 g/dL (31.5-36.5); Mean Platelet Volume 10.8 fL (9.1-12.4); NEUTROPHILS ABSOLUTE AUTO 16.78 K/mm3 (1.96-9.15); NEUTROPHILS PERCENT AUTO 93 % (41-73); Platelet Count 93 K/mm3 (150-400); RDW Coefficient Variation 17.4 % (11.7-14.2); RDW Standard Deviation 56.9 fL (35.1-46.3); Red Blood Cell Count 2.61 M/mm3 (3.80-5.20)
[2020-01-30 04:04] LABS: Mean Corpuscular Volume 92 fL (80-100)
[2020-01-30 04:16] LABS: Alanine Aminotransfer (ALT/SGP 7 U/L (12-78); Albumin, Blood 2.6 g/dL (3.4-5.0); Albumin/Globulin Ratio 1.1 (0.8-1.8); Alk Phos 106 U/L (50-136); Anion Gap 19 mmol/L (6-16); Aspartate Aminotrans (AST/SGOT 24 U/L (12-37); Bilirubin, Total 2.9 mg/dL (0.1-1.0); Blood Urea Nitrogen 22 mg/dL (8-24); Bun/Creatinine Ratio 26.4 (12.0-20.0); CO2, Blood 16 mmol/L (21-32); Chloride, Blood 103 mmol/L (98-108); Creatinine, Blood 0.83 mg/dL (0.40-1.00); Globulin, Blood 2.4 g/dL (2.2-4.0); Glomerular Filtration Rate >60 (60-); Glucose, Blood 135 mg/dL (70-99); Phosphorus, Blood 2.4 mg/dL (2.5-4.9); Potassium, Blood 2.8 mmol/L (3.5-5.5); Sodium, Blood 138 mmol/L (136-145); Vancomycin, Random 25.3 ug/mL
--- NOTE | 2020-01-30 06:17 | NUR ---
SHIFT SUMMARY: NO ACUTE CHANGES T/ON SHIFT. VSS. PT HAD A BM THIS AM. DRESSING OVER COCCYX CHANGED. POTASSIUM REMAINS LOW-2.[address] AM. ORDERS FROM DR ODONNELL ARE KCL 40MEQ IV X 1. PT STATED SHE WAS PAINFUL DURING SHIFT SPECIFICALLY STOMACH AND BACK. WILL PASS REPORT TO ONCOMING SHIFT
--- NOTE | 2020-01-30 12:00 | NUR ---
MID SHIFT ASSESSMENT PT'S OXYGENATION KEPT DECREASEING, WORSE WITH MOVEMENT AND PT WAS PLACED BACK TO BIPAP FROM CPAP. PT IS NOW MAINTAINING SPO2 BETTER AND DOESN'T APPEAR TO BE WORKING HARD TO BREATH. MONITOR SHOWS PT TO BE SINUS RYTHM TO SINUS TACH WITH RATES 90'S-100'S. BP SOFT AT TIMES WITH SYSTOLIC PRESSURES IN THE 90'S, HOWEVER MAP HAS MAINTAINED >65. UNABLE TO COMPLETE ORAL CARE PT HASN'T TOLERATED COMING OFF OF THE BIPAP. COMPLETED REPLACEMENT OF KCL PER ORDERS. PT ONLY HAD ONE LOOSE BM THIS MORNING.
[2020-01-30 13:05] LABS: PCO2 Arterial 30.1 mmHg (35-45); PO2 Arterial 63.7 mmHg (80-100); pH Blood Arterial 7.31 (7.35-7.45)
[2020-01-30 13:33] LABS: Alanine Aminotransfer (ALT/SGP 11 U/L (12-78); Albumin, Blood 2.5 g/dL (3.4-5.0); Alk Phos 111 U/L (50-136); Anion Gap 17 mmol/L (6-16); Aspartate Aminotrans (AST/SGOT 26 U/L (12-37); Bilirubin, Total 2.8 mg/dL (0.1-1.0); Blood Urea Nitrogen 22 mg/dL (8-24); Bun/Creatinine Ratio 27.2 (12.0-20.0); CO2, Blood 16 mmol/L (21-32); Calcium, Blood 8.1 mg/dL (8.5-10.1); Chloride, Blood 107 mmol/L (98-108); Creatinine, Blood 0.81 mg/dL (0.40-1.00); Globulin, Blood 2.5 g/dL (2.2-4.0); Glomerular Filtration Rate >60 (60-); Glucose, Blood 141 mg/dL (70-99); Sodium, Blood 140 mmol/L (136-145)
--- NOTE | 2020-01-30 19:18 | NUR ---
SHIFT SUMMARY PT HAS BEEN NOT INTERACTIVE OR VERBAL WITH STAFF. SHE WILL FOLLOW COMMANDS AT TIMES AND BE RESTLESS AT TIMES. WHEN ASKED IF SHE WAS HURTING, PT WOULD SAY "YES", BUT WAS UNABLE TO ANSWER/RESPOND TO WHERE SHE WAS HURTING. SEE EMAR FOR PRN PAIN MEDS. PICC WAS PLACED THIS EVENING BY PICC NURSE, WITH PLANS TO D/C CENTRAL LINE ONCE CURRENT INFUSIONS COMPLETE. DOBHOFF PLACED THIS AFTERNOON PER DR'S ORDER AND TRICKLE FEEDS STARTED. PT HAS REMAINED ON BIPAP THROUGHOUT THE DAY AND WAS UNABLE TO TOLERATE ANY BREAKS, SHE WOULD IMMEDIATELY DROP HER SPO2. BP WAS SOFT AT TIMES SYSTOLICALLY IN THE 90'S, BUT WOULD RECOVER WITH NO INTERVENTION. KRYSTAL HAS PUT OUT QUANTITY SUFFICIANT URINE AFTER IV LASIX GIVEN.
--- NOTE | 2020-01-30 20:00 | NUR ---
PT CONTINUES TO BE RESTLESS, PULLING OFF BIPAP TUBING, REACHING UNDER MASK POSSIBLY REACHING FOR NG TUBE. PRECEDEX IS ORDERED. WILL START PT ON 0.2MCG OF PRECEDEX.
--- NOTE | 2020-01-30 21:30 | NUR ---
ASSUMPTION OF CARE: PT IS FAIRLY AWAKE BEGINNING OF SHIFT. STILL MOANING OUT LUNG SOUNDS COARSE/CRACKLY MEGHANN IN UPPER RIGHT LOBE. BIPAP REMAINS ON 8/55%. PT IS NOT TOLERATING BIPAP WELL. IS REACHING UP UNDERNEATH MASK OR IS DISCONNECTING BIPAP TUBING FROM MASK. FREQUENT REDIRECTING IS NOT EFFECTIVE. VSS. PT STILL NOT REQUIRING PRESSERS. NG TUBE PLACED DURING DAYSHIFT FOR TF-PIVOT 1.5 AT GOAL OF 15MLS/HR. TEMP RICE IN PLACE DRAINING CLEAR YELLOW URINE. RICE BAG HALF FULL AT SHIFT CHANGE PT IS DIURESING. PT HAD A BM BEGINNING OF SHIFT. CRAIG CHANGED, COCCYX WOULD AND GLUTEAL FOLD WOUNDS CLEANED AND MEPILEX APPLIED. SCAB ON L FOOT IS NOW WEEPING SO MEPILEX SECURED OVER SITE. PICC LINE PLACED CLAY DURING DAYSHIFT, HOWEVER FLUIDS ARE STILL INFUSING THROUGHT R SUBCLAVIAN CL. CL IS TO BE PULLED D/T NO LONGER IN CORRECT PLACE. POTASSIUM CURRENTLY INFUSING WELL NS TKO. WILL CONTINUE TO MONITOR
--- NOTE | 2020-01-31 04:19 | NUR ---
PT HAS SLEPT COMFORTABLY SINCE STARTING PRECEDEX AND IS TOLERATING BIPAP WELL. WILL CONTINUE TO MONITOR
[2020-01-31 04:44] LABS: BASOPHILS ABSOLUTE AUTO 0.02 K/mm3 (0.00-0.23); BASOPHILS PERCENT AUTO 0 % (0-2); EOSINOPHILS PERCENT AUTO 0 % (0-6); Hematocrit 24.2 % (33.0-51.0); Hemoglobin 8.1 g/dL (11.5-16.0); IMMATURE GRAN PERCENT AUTO 2 % (0-1); LYMPHOCYTES ABSOLUTE AUTO 0.42 K/mm3 (0.84-5.20); LYMPHOCYTES PERCENT AUTO 3 % (21-46); MONOCYTES ABSOLUTE AUTO 0.44 K/mm3 (0.16-1.47); MONOCYTES PERCENT AUTO 3 % (4-13); Mean Corpuscular HGB 30.7 pg (26.0-34.0); Mean Corpuscular HGB Conc 33.5 g/dL (31.5-36.5); Mean Corpuscular Volume 92 fL (80-100); Mean Platelet Volume 10.8 fL (9.1-12.4); NEUTROPHILS ABSOLUTE AUTO 11.95 K/mm3 (1.96-9.15); NEUTROPHILS PERCENT AUTO 91 % (41-73); Platelet Count 83 K/mm3 (150-400); RDW Coefficient Variation 17.6 % (11.7-14.2); Red Blood Cell Count 2.64 M/mm3 (3.80-5.20); White Blood Cell Count 13.13 K/mm3 (4.00-11.30)
[2020-01-31 05:46] LABS: Albumin, Blood 2.1 g/dL (3.4-5.0); Anion Gap 18 mmol/L (6-16); Blood Urea Nitrogen 20 mg/dL (8-24); Bun/Creatinine Ratio 25.3 (12.0-20.0); CO2, Blood 16 mmol/L (21-32); Calcium, Blood 7.7 mg/dL (8.5-10.1); Chloride, Blood 110 mmol/L (98-108); Creatinine, Blood 0.79 mg/dL (0.40-1.00); Glomerular Filtration Rate >60 (60-); Glucose, Blood 164 mg/dL (70-99); Phosphorus, Blood 1.7 mg/dL (2.5-4.9); Sodium, Blood 144 mmol/L (136-145); Vancomycin, Random 18.1 ug/mL
[2020-01-31 05:48] LABS: Potassium, Blood 2.2 mmol/L (3.5-5.5)
--- NOTE | 2020-01-31 05:57 | NUR ---
CALL PLACED TO DR. ODONNELL RE POTASSIUM 2.2CL. ORDERS RECEIVED FOR KCL 40MEQ IV X 1.
--- NOTE | 2020-01-31 06:20 | NUR ---
SHIFT SUMMARY: NO ACUTE CHANGES SINCE LAST NOTE. PT RESPONDED TO PRECEDEX WELL AND TOLERATED BIPAP T/O NIGHT. VSS. DRESSINGS TO WOUNDS ARE C/D/I. ONE BM AT BEGINNING OF SHIFT. R SUBCLAVIAN CL PULLED, PRESSURE HELD FOR 5 MINUTES WITH PETROLEUM GAUZE AND GAUZE 2X2S. CLEAR OCCLUSIVE DRESSING SECURED OVER. DRESSING C/D/I. WILL PASS REPORT TO ONCOMING SHIFT
--- NOTE | 2020-01-31 09:53 | NUR ---
ASSUMED CARE OF PT AT 0700. REPORT FROM RADHA MARINA. PT ON BIPAP, 08/11 55% AND PRECEDEX INFUSING AT 0.3 MCG/KG/HR AT START OF SHIFT. PT MAONS c CARE. DOES NOT ANSWER QUESTIONS OR FOLLOW COMMANDS. LUNGS c CRACKLES THROUGHOUT. PT P/W/D. O2 SATS >95%. HR, SR RATE 90'S. BP STABLE. DOBHOFF IN PLACE, PIVOT 1.5 INFUSING AT 1.5 ML/HR c 30ML FLUSH q4 HR. ABD ROUND, SOFT, TENDER, BT X 4. PT EDEMATOUS IN ALL EXTREMITIES. WOUNDS CHARTED IN ASSESSMENT. PT c LOOSE BROWN STOOL. RECTAL TUBE PLACED. DRAINING TO GRAVITY. RICE IN PLACE, DRAINING TO GRAVITY. DR HIDALGO TO SEE PT, PLAN TO INCREASE LASIX, DECREASE IV FLUIDS, FIO2 DECREASED TO 45%, WILL REPLACE KCL, KPHOS AND RECHECK ELECTROLYTES, PLACED PRECEDEX ON STANDBY TO ENCOURAGE COUGH AND MOVEMENT OF SECRETIONS. WILL CONTINUE TO MONITOR.
[2020-01-31 17:40] LABS: Magnesium, Blood 1.9 mg/dL (1.6-2.4)
[2020-01-31 17:42] LABS: Anion Gap 17 mmol/L (6-16); Blood Urea Nitrogen 22 mg/dL (8-24); Bun/Creatinine Ratio 30.1 (12.0-20.0); CO2, Blood 18 mmol/L (21-32); Calcium, Blood 7.9 mg/dL (8.5-10.1); Chloride, Blood 110 mmol/L (98-108); Creatinine, Blood 0.73 mg/dL (0.40-1.00); Glomerular Filtration Rate >60 (60-); Glucose, Blood 181 mg/dL (70-99); Phosphorus, Blood 2.4 mg/dL (2.5-4.9); Potassium, Blood 2.2 mmol/L (3.5-5.5); Sodium, Blood 145 mmol/L (136-145)
--- NOTE | 2020-01-31 19:45 | NUR ---
INITAL SHIFT ASSESSMENT BEDSIDE REPORT RECIEVED FROM OFF GOING RN. PT HAS BIPAP IN PLACE AT THIS TIME. SHE IS UNABLE TO ANSWER ANY QUESTIONS AT THIS TIME. SHE DOES WAKE AND OPEN EYES WHEN THIS RN TALKS WITH HER. SHE DOES NOT SQUEEZE THIS RN'S HANDS OR WIGGLE TOES. NOT FOLLOWING ANY COMMANDS. PT WAS TURNED AT THIS TIME AND CLEANED UP. SHE HAS A FLEXISEAL IN PLACE AND WAS LEAKING BROWN/GREEN LIQUID STOOL. LINEN WAS CHANGED. DRESSING TO COCCYX WAS PLACED. CATH CARE DONE WELL AT THIS TIME. PT MOANS AND YELLS SOUNDS INTO THE BIPAP WITH TURNING, BUT DID NOT FOLLOW COMMANDS OR HELP WITH TURN. PAS STOCKINGS IN PLACE. DRESSINGS TO FEET ARE CDI. DRESSING TO RIGHT HAND CDI. PICC LINE TO LEFT UPPER ARM IS PATENT WITH NO S/S OF INFECTION. DRESSING IS CDI. PT HAS POTASSIUM RUNNING WELL TKO LINES. SEE EMAR FOR ALL ADMINISTERED MEDICATIONS. PT HAS DOBHOFF IN PLACE WELL WITH TUBE FEEDING RUNNING AT GOAL. WILL CON'T TO TURN PT TO PROMOTE SKIN HEALING. PT STABLE AT THIS TIME.
--- NOTE | 2020-01-31 19:51 | NUR ---
SUMMARY Assumed care of pt at 1600 from Qian MARINA. Pt on AirVo with 60 LPM and 48% FiO2. SpO2 90% or greater. Pt remained on AirVO until 1700. Placed back on BiPAP because pt was desaturating down to 87%. BiPAP 12/8 and 45%. Pt recovered in less than one minute. Lungs coarse t/o on auscultation. No cough noted. Pt opens eyes spontaneously. Does not follow commands. Withdraws from pain. Does not answer questions or speak. Pt moans. SR/ST per monitor. BP stable. Dobhoff in place with tube feeds at goal and flushes per orders. Rectal tube in place with 400 mL of liquid green stool. Miranda catheter in place, excellent urine output this shift. Discussed [address] Stein, provider entered new orders.
--- NOTE | 2020-01-31 23:29 | NUR ---
SHIFT UPDATE PT CON'T TO BE STABLE. SHE IS ALERT WITH THIS RN WALKING IN ROOM. LOOKING ABOUT TURNING HER HEAD WITH BIPAP IN PLACE. SHE WAS REPOSITIONED ONTO HER BACK WITH HOB ELEVATED. PILLOWS UNDER ALL EXTREMITIES. NO LEAKING AROUND FLEXISEAL AT THIS TIME. RICE CATH CON'T TO MALCOM URINE. BIPAP CON'T TO BE IN PLACE. WILL CON'T TO MONITOR AND KEEP PT SAFE T/O REMAINDER OF SHIFT.
[2020-02-01 04:03] LABS: BASOPHILS ABSOLUTE AUTO 0.03 K/mm3 (0.00-0.23); BASOPHILS PERCENT AUTO 0 % (0-2); EOSINOPHILS PERCENT AUTO 0 % (0-6); Hematocrit 23.4 % (33.0-51.0); Hemoglobin 7.9 g/dL (11.5-16.0); IMMATURE GRAN PERCENT AUTO 4 % (0-1); LYMPHOCYTES ABSOLUTE AUTO 0.44 K/mm3 (0.84-5.20); LYMPHOCYTES PERCENT AUTO 3 % (21-46); MONOCYTES ABSOLUTE AUTO 0.46 K/mm3 (0.16-1.47); MONOCYTES PERCENT AUTO 3 % (4-13); Mean Corpuscular HGB 30.4 pg (26.0-34.0); Mean Corpuscular HGB Conc 33.8 g/dL (31.5-36.5); Mean Corpuscular Volume 90 fL (80-100); Mean Platelet Volume 11.9 fL (9.1-12.4); NEUTROPHILS ABSOLUTE AUTO 12.55 K/mm3 (1.96-9.15); NEUTROPHILS PERCENT AUTO 89 % (41-73); NRBC ABSOLUTE 0.02 K/mm3 (0.00-0.02); NRBC Auto 0.1 /100 WBC (0.0-0.2); Platelet Count 123 K/mm3 (150-400); RDW Coefficient Variation 17.7 % (11.7-14.2); RDW Standard Deviation 56.1 fL (35.1-46.3); White Blood Cell Count 14.08 K/mm3 (4.00-11.30)
[2020-02-01 04:16] LABS: International Normalized Ratio 1.52; Prothrombin Time Results 15.9 Sec (9.7-11.5)
[2020-02-01 04:20] LABS: Magnesium, Blood 1.8 mg/dL (1.6-2.4)
[2020-02-01 04:33] LABS: Alanine Aminotransfer (ALT/SGP 12 U/L (12-78); Albumin, Blood 2.1 g/dL (3.4-5.0); Albumin/Globulin Ratio 0.7 (0.8-1.8); Alk Phos 235 U/L (50-136); Anion Gap 18 mmol/L (6-16); Aspartate Aminotrans (AST/SGOT 29 U/L (12-37); Bilirubin, Total 2.3 mg/dL (0.1-1.0); Blood Urea Nitrogen 24 mg/dL (8-24); Bun/Creatinine Ratio 32.3 (12.0-20.0); CO2, Blood 19 mmol/L (21-32); Calcium, Blood 7.6 mg/dL (8.5-10.1); Chloride, Blood 112 mmol/L (98-108); Creatinine, Blood 0.74 mg/dL (0.40-1.00); Globulin, Blood 2.9 g/dL (2.2-4.0); Glomerular Filtration Rate >60 (60-); Glucose, Blood 192 mg/dL (70-99); Phosphorus, Blood 1.5 mg/dL (2.5-4.9); Potassium, Blood 2.3 mmol/L (3.5-5.5); Sodium, Blood 149 mmol/L (136-145); Vancomycin, Random 23.1 ug/mL
--- NOTE | 2020-02-01 06:00 | NUR ---
SHIFT SUMMARY PT CON'T TO BE STABLE. SHE HAS NO CHANGES FROM BASELINE. SHE CON'T TO NOT FOLLOW COMMANDS. ORAL CARE PERFORMED T/O SHIFT AND THIS CONT' TO AGGITATE HER AND SHE SHAKES HER HEAD AND GRABS THIS RN'S HANDS. VITALS HAVE BEEN STABLE T/O SHIFT WITH NO CHANGES FROM BASELINE. PT CON'T TO HAVE FLEXISEAL IN PLACE WELL RICE CATH. BOTH DRAINING AND PATENT. OVERALL NO ACUTE CHANGES. DR SOTELO WAS CALLED REGARDING HER ABNORMAL AM LABS. HE PLACED NEW ORDERS AND THEY WERE IMPLEMENTED BY THIS RN. WILL CON'T TO MONITOR AND KEEP PT SAFE TILL REPORT TO ONCOMING RN.
--- NOTE | 2020-02-01 08:10 | NUR ---
ASSUMED CARE OF PT AT 0700. REPORT FROM EARLINE MARINA. PT ON BIPAP, 08/11 45%. O2 SATS >94%. CRACKLES THROUGHOUT LUNGS. LABORED RESP. PT MOANS, RESPONSES TO PAINFUL STIMULI, DOES NOT FOLLOW DIRECTIONS. PT HAS PITTING EDEMA THROUGHOUT BODY. DOBHOFF TO LEFT NARE. PIVOT 1.5 INFUSING AT GOAL OF 40 ML/HR c 30 ML q4 FLUSHES. ABD DISTENDED, SOFT, HYPOACTIVE BT. RECTAL TUBE IN PLACE, DRAINING WATERY, BROWN STOOL. RICE PATENT, DRAINING CLEAR YELLOW URINE TO GRAVITY. CONTINUE TO DIURESE. SEE ASSESSMENT FOR SKIN ISSUES. WILL CONTINUE TO MONITOR.
--- NOTE | 2020-02-01 09:09 | NUR ---
DR HIDALGO ROUND PLAN TO REPLACE K AND PHOS ORALLY IN ADDITION TO IV. RECHECK LABS AT 1600. OK TO ALTERNATE AIRVO AND BIPAP. INCREASED WATER FLUSHES TO 200 ML q4.
[2020-02-01 16:44] LABS: Magnesium, Blood 1.6 mg/dL (1.6-2.4); Phosphorus, Blood 2.3 mg/dL (2.5-4.9); Potassium, Blood 2.5 mmol/L (3.5-5.5)
--- NOTE | 2020-02-01 17:53 | NUR ---
SHIFT SUMMARY PT CURRENTLY ON AIRVO 60L, 48%, INTERMITTANTLY WORE BIPAP DURING SHIFT, 08/11 45%. LUNGS COARSE c CRACKLES THROUGHOUT. NON PRODUCTIVE COUGH. VSS. PT CONTINUES TO MOAN c CARE, MAKES OCCASIONAL EYE CONTACT. DOES NOT FOLLOW COMMANDS. DIURESED AND REPLACED ELECTROLYTES THIS SHIFT. INCREASED FREE WATER FLUSHES VIA DOBHOFF TO 200 ML q4, PIVOT 1.5 AT GOAL OF 40 ML/HR. CONTINUES TO BE EDEMATOUS OVER ENTIRE BODY. SKIN FRAGILE. PICC TO LUE, DRESSING C/D/I. RICE PATENT AND DRAINING YELLOW URINE c SEDIMENT TO GRAVITY. RECTAL TUBE DRAINING WATERY BROWN STOOL TO GRAVITY. WILL CONTINUE TO MONITOR UNTIL REPORT TO ONCOMING NURSE.
[2020-02-02 05:15] LABS: Hematocrit 24.4 % (33.0-51.0); Mean Corpuscular HGB 30.5 pg (26.0-34.0); Mean Corpuscular HGB Conc 32.8 g/dL (31.5-36.5); Mean Platelet Volume 12.5 fL (9.1-12.4); Platelet Count 147 K/mm3 (150-400); RDW Coefficient Variation 19.1 % (11.7-14.2); RDW Standard Deviation 62.9 fL (35.1-46.3); Red Blood Cell Count 2.62 M/mm3 (3.80-5.20); White Blood Cell Count 19.14 K/mm3 (4.00-11.30)
[2020-02-02 05:17] LABS: Mean Corpuscular Volume 93 fL (80-100)
[2020-02-02 05:36] LABS: Magnesium, Blood 1.7 mg/dL (1.6-2.4)
[2020-02-02 05:40] LABS: BAND PERCENT MAN 1 % (0-8); BASOPHILS PERCENT MAN 0 % (0-2); EOSINOPHILS PERCENT MAN 0 % (0-6); LYMPHOCYTES ABSOLUTE MAN 0.95 K/mm3 (0.84-5.20); LYMPHOCYTES PERCENT MAN 5 % (21-46); MONOCYTES ABSOLUTE MAN 0.76 K/mm3 (0.16-1.47); MONOCYTES PERCENT MAN 4 % (4-13); NEUTROPHILS ABSOLUTE MAN 17.41 K/mm3 (1.96-9.15); SEG NEUTROPHILS PERCENT MAN 90 % (41-73); TOTAL CELLS COUNTED 100
[2020-02-02 05:49] LABS: Alanine Aminotransfer (ALT/SGP 21 U/L (12-78); Albumin/Globulin Ratio 0.7 (0.8-1.8); Alk Phos 395 U/L (50-136); Anion Gap 17 mmol/L (6-16); Aspartate Aminotrans (AST/SGOT 29 U/L (12-37); Bilirubin, Total 1.9 mg/dL (0.1-1.0); Blood Urea Nitrogen 33 mg/dL (8-24); Bun/Creatinine Ratio 40.2 (12.0-20.0); CO2, Blood 19 mmol/L (21-32); Calcium, Blood 7.2 mg/dL (8.5-10.1); Chloride, Blood 115 mmol/L (98-108); Creatinine, Blood 0.82 mg/dL (0.40-1.00); Glomerular Filtration Rate >60 (60-); Glucose, Blood 201 mg/dL (70-99); Phosphorus, Blood 3.5 mg/dL (2.5-4.9); Potassium, Blood 2.9 mmol/L (3.5-5.5); Sodium, Blood 151 mmol/L (136-145); Vancomycin, Random 14.5 ug/mL
--- NOTE | 2020-02-02 06:43 | NUR ---
SHIFT SUMMARY PATIENT HAS BEEN SLOWLY BECOMING LESS RESPONSIVE TO STIMULI. STILL MOANS TO ORAL CARE, HOWEVER VERY WEAK, BARELY MOVES EXTREMETIES. OTHERWISE NO ACUTE CHANGES. ASSESSMENT IS CHARTED. VSS. WILL CONTINUE TO MONITOR.
--- NOTE | 2020-02-02 07:15 | NUR ---
REC'D REPORT FROM LAINA GARCIA AND AM NOW ASSUMING CARE OF THIS PT.
--- NOTE | 2020-02-02 07:30 | NUR ---
AM ASSESSMENT: PT IS SOMNOLENT AND ONLY BRIEFLY OPENS EYES W/ OCCASIONAL MOANS W/ NOXIOUS STIMULI. UE/LE'S ARE MOSTLY FLACCID, HOWEVER MIN/VERY OCCASIONAL MOVEMENT SEEN W/ NOXIOUS STIMLULI. LUNGS WITH INS/EXP COARSENESS T/O ALL LUNG FEILDS AND DIM IN THE BILATERAL BASES. SPO2- LOW 90% RANGE ON AIRVO AT 60L/76% FI02. NO REPORTS PT HAS TOLERATED LONGER TIMES OFF THE BIPAP IN COMPARISON TO PRIOR DAYS. HR REGULAR, SR/ST 90-100'S RANGE. PT WITH WEEPING ANASARCA T/O BODY. PICC LINE IN THE LT UA WITH NS-@ 5ML/HR FOR TKO. ABD MODERATIVE DISTENDED/SOFT/HYPOACTIVE BT'S X4 QUADS. TEMP RICE DRAINING YELLOW COLORED URINE TO GRAVITY. RECTAL TUBE IN PLACE FOR LIQUID BROWN STOOL OUTPUT. PT REC'ING PIVOT 1.5 TUBE FEEDINGS @ GOAL RATE OF 40ML/HR. PT REC'ING 200ML WATER FLUSHES Q4HR FOR CONT HYPERNATREMIA. -CONTINUE KCL IVPB FOR HYPONATREMIA, WILL ASK FOR ELECTROLYTE RECHECK FOR LATER THIS SHIFT. -FULL CODE STATUS, WORKING WITH PALLATIVE CARE TO BRING IN AND START PALLATIVE CARE DISCUSSIONS. -CBG'S Q6HR W/INSULIN COVERAGE -TURN Q2HR TO MAINTAIN SKIN INTEGRITY -ORAL CARE Q4H WHEN PT ON BIPAP/PRN
--- NOTE | 2020-02-02 07:35 | NUR ---
DECREASED SPO2: PT BEGAN TO DESAT 80-86% RANGE ON AIRVO ON 60L/76% FI02. PT PLACED ON BIPAP AND TOOK APPROX. 5-10 MIN TO RECOVER. BIPAP SETTINGS: /8/RATE-10/FI02 60%. PT'S RR HIGH 20'S RANGE.
--- NOTE | 2020-02-02 08:30 | NUR ---
CALLED AND LEFT MESSAGE WITH PALLATIVE CARE RN, THIS RN WOULD LIKE THEM TO REVISIT THIS CASE, PT CONTINUES TO DECLINE. WILL ATTEMPT TO GET THE IN TO THE BEDSIDE TODAY IF POSSIBLE.
--- NOTE | 2020-02-02 09:25 | NUR ---
DR REYNOLDS HERE TO ASSESS PT. UPDATED WITH PT'S DECLINING STATUS. WILL OBTAIN VIRAL SWAB FOR RESP. PANEL AND R/O FOR HIV. SEE OTHER ORDERS FOR FURTHER TX'S.
--- NOTE | 2020-02-02 09:58 | NUR ---
SPOKE WITH [facility] PALLAT[facility] RN. SHE WAS ABLE TO REACH PT'S (ARMANDO) AND HE WILL BE IN TO SEE HIS IN APPROX 1-2 HRS. DEREK GOOD TO DISCUSS PT'S STATUS WITH HIM AND ALSO INTEND TO HAVE INDUSTRY CONSULTANT DISCUSS CASE WITH WELL.
[2020-02-02 11:36] LABS: Adenovirus Not Detected (NOT DETECT); Bordetella pertussis Not Detected (NOT DETECT); Chlamydophila pneumoniae Not Detected (NOT DETECT); Coronavirus 229E Not Detected (NOT DETECT); Coronavirus HKU1 Not Detected (NOT DETECT); Coronavirus NL63 Not Detected (NOT DETECT); Coronavirus OC43 Not Detected (NOT DETECT); Human Metapneumovirus Not Detected (NOT DETECT); Human Rhinovirus/Enterovirus Not Detected (NOT DETECT); Influenza A/2009-H1 Not Detected (NOT DETECT); Influenza A/H1 Not Detected (NOT DETECT); Influenza A/H3 Not Detected (NOT DETECT); Influenza B Not Detected (NOT DETECT); Mycoplasma pneumoniae Not Detected (NOT DETECT); Parainfluenza Virus 1 Not Detected (NOT DETECT); Parainfluenza Virus 2 Not Detected (NOT DETECT); Parainfluenza Virus 3 Not Detected (NOT DETECT); Parainfluenza Virus 4 Not Detected (NOT DETECT); Respiratory Syncytial Virus Not Detected (NOT DETECT)
--- NOTE | 2020-02-02 13:16 | NUR ---
DR HIDALGO IN AT THE BEDSIDE DISCUSSING PT'S CASE AND PLAN OF CARE WITH PT'S .
--- NOTE | 2020-02-02 14:45 | NUR ---
PT UPDATE: AFTER DR HIDALGO DISCUSSED PT'S CASE W/ , HE STATES HE WANTS EVERYTHING DONE, WHEN DISCUSSING NEED FOR PT TO BE INTUBATED R/T DECLINING RESPIRATORY STATUS. 1328-5ML OF PROPOFOL GIVEN IN PREP OF INTUBATION. 1332-PT INTUBATED. BREATH SOUNDS HEARD IN ALL LUNG BROOKS. CXR DONE TO CONFIRM PLACMENT. PROPOFOL STARTED AT 10MCG/KG/MIN FOR COMFORT.
[2020-02-02 14:48] LABS: Base Excess Venous -11.8 mmol/L; Bicarbonate Venous 15.7 mmol/L (24.0-30.0); PCO2 Venous 38.3 mmHg (38-42); pH Blood Venous 7.23 (7.34-7.37)
[2020-02-02 16:46] LABS: Potassium, Blood 2.9 mmol/L (3.5-5.5)
[2020-02-02 17:03] LABS: PCO2 Arterial 35.9 mmHg (35-45); pH Blood Arterial 7.32 (7.35-7.45)
--- NOTE | 2020-02-02 17:15 | NUR ---
CALLED DR HIDALGO RE: CONTINUED LOW POTASSIUM LEVEL. WILL GIVEN KCL 40MEQ PT AND 40MEQ IVPB.
--- NOTE | 2020-02-02 17:36 | NUR ---
CALLED DR HIDALGO RE: RECENT ABG RESULTS. NO NEW CHANGES AT THIS TIME.
--- NOTE | 2020-02-02 18:16 | NUR ---
SHIFT SUMMARY: PT WAS INTUBATED TODAY AFTER DISCUSSING PT'S STATUS AND PT'S NEEDS WITH (ARMANDO). INTUBATED AT 1332 TODAY AND SEDATED W/TITRATED PROPOFOL @ 50MCG/KG/MIN. PT HAS HAD MORE MOVEMENT OF UE/LE'S POST INTUBATION IN COMPARISON TO PRIOR. PT WILL ONLY OPEN EYES TO NOXIOUS STIMULI. LUNGS REMAIN VERY COARSE T/O BILATERALLY. INCREASED AIR FLOW HEARD IN THE BASES, POST INTUBATION. VENT SETTINGS: AC-16, TV-350, P-5, FI02-60%. PT'S RR-MID 30'S HR REGULAR, SR/ST 90-100'S RANGE. CONTINUED GENERALIZED ANASARCA (IMPROVED). PICC IN RT UA WITH D5W@ 50ML/HR. TUBE FEEDINGS CONT AT GOAL FO 40ML/HR. RICE TEMP PROBE WITH 450ML TIANNA COLORED URINE DRAINED TO GRAVITY. 100ML OF LIQUID BROWN STOOL OUT PER RECTAL TUBE. URINE OUT
--- NOTE | 2020-02-02 19:30 | NUR ---
INITAL SHIFT ASSESSMENT PT IS INTUBATED AND SEDATED AT THIS TIME. OFF GOING RN AND THIS RN GAVE PT A PARTIAL BATH AT THIS TIME. DRESSING TO COCCXY REMOVED AND WOUND IS LEFT OPEN TO AIR. WILL RE-APPLY NEW DRESSING WITH NEXT TURN. SKIN TO POSTERIOR THIGHS AND BUTTOCKS IS OPEN AND WEEPING, BUT APPEAR TO BE HEALING. FLEXISEAL IN PLACE AND REPOSITIONED AT THIS TIME. PT TOLERATED THIS TURNING AND CLEANING WELL. SHE DID HOWEVER HAVE AN INCREASE IN HER RR AND THEREFORE WAS GIVEN FENTANYL IV FOR PAIN CONTROL. SHE RESPONDED WELL TO THIS. VITALS REMAINDED STABLE DURING THIS TIME. RICE CATH IN PLACE DRAINING YELLOW URINE. CATH CARE WAS DONE WELL. PT HAS ON PINK HEEL PROTECTORS AND ALL EXTREMITIES ARE ELEVATED ON PILLOWS. SOFT BILATERAL WRIST RESTRAINTS IN PLACE. SKIN CONDITION AND CIRCULATION CHECKED. PICC LINE TO LEFT UPPER ARM CDI WITH FLUIDS RUNNING. SEE EMAR FOR ALL ADMINISTERED MEDICATIONS. PROPOFOL GTT RUNNING AT 50MCG. OVERALL PT IS STABLE AT THSI TIME. WILL CON'T TO MONITOR AND KEEP PT SAFE T/O REMAINDER OF SHIFT.
--- NOTE | 2020-02-02 23:22 | NUR ---
SHIFT UPDATE DR HIDALGO IN ICU AND HE SAW PT. HE IS AWARE OF RR BEING ELEVATED AND STATES THIS IS OK FOR HER. DISCUSSED MORE SEDATION AND HE DID NOT DESIRE ANY AT THIS TIME. PT WAS GIVEN FENTANYL PRIOR TO HIS VISIT AND THEN SHE DID HAVE A DECREASE IN BP. PROPOFOL GTT WAS DECREASED WELL. BP IS RESPONDING. ORAL CARE WAS PERFORMED AND AGAIN PT WAS REACTIVE WITH HER TONGUE MOVEMENT AND SHAKING HER HEAD. SHE STILL IS NOT FOLLOWING ANY COMMANDS. VITALS CON'T TO BE STABLE WILL CON'T TO MONITOR PT AND KEEP SAFE T/O SHIFT.
[2020-02-03 03:11] LABS: BASOPHILS ABSOLUTE AUTO 0.02 K/mm3 (0.00-0.23); BASOPHILS PERCENT AUTO 0 % (0-2); EOSINOPHILS ABSOLUTE AUTO 0.01 K/mm3 (0.00-0.68); EOSINOPHILS PERCENT AUTO 0 % (0-6); Hematocrit 20.7 % (33.0-51.0); Hemoglobin 6.7 g/dL (11.5-16.0); IMMATURE GRAN ABSOLUTE AUTO 0.94 K/mm3 (0.00-0.10); IMMATURE GRAN PERCENT AUTO 7 % (0-1); LYMPHOCYTES ABSOLUTE AUTO 0.63 K/mm3 (0.84-5.20); LYMPHOCYTES PERCENT AUTO 5 % (21-46); MONOCYTES ABSOLUTE AUTO 0.51 K/mm3 (0.16-1.47); MONOCYTES PERCENT AUTO 4 % (4-13); Mean Corpuscular HGB 30.9 pg (26.0-34.0); Mean Corpuscular HGB Conc 32.4 g/dL (31.5-36.5); Mean Corpuscular Volume 95 fL (80-100); Mean Platelet Volume 12.1 fL (9.1-12.4); NEUTROPHILS ABSOLUTE AUTO 11.62 K/mm3 (1.96-9.15); NEUTROPHILS PERCENT AUTO 85 % (41-73); NRBC ABSOLUTE 0.05 K/mm3 (0.00-0.02); NRBC Auto 0.4 /100 WBC (0.0-0.2); Platelet Count 128 K/mm3 (150-400); RDW Coefficient Variation 19.9 % (11.7-14.2); RDW Standard Deviation 67.4 fL (35.1-46.3); Red Blood Cell Count 2.17 M/mm3 (3.80-5.20); White Blood Cell Count 13.73 K/mm3 (4.00-11.30)
[2020-02-03 03:27] LABS: BAND PERCENT MAN 3 % (0-8); BASOPHILS PERCENT MAN 0 % (0-2); EOSINOPHILS PERCENT MAN 0 % (0-6); LYMPHOCYTES ABSOLUTE MAN 1.23 K/mm3 (0.84-5.20); LYMPHOCYTES PERCENT MAN 9 % (21-46); METAMYELOCYTE ABSOLUTE MAN 0.27 K/mm3 (0.00-0.00); METAMYELOCYTE PERCENT MAN 2 % (0-0); MONOCYTES PERCENT MAN 0 % (4-13); MYELOCYTE ABSOLUTE MAN 0.13 K/mm3 (0.00-0.00); MYELOCYTE PERCENT MAN 1 % (0-0); NEUTROPHILS ABSOLUTE MAN 12.08 K/mm3 (1.96-9.15); SEG NEUTROPHILS PERCENT MAN 85 % (41-73); TOTAL CELLS COUNTED 100
[2020-02-03 03:29] LABS: Alanine Aminotransfer (ALT/SGP 15 U/L (12-78); Albumin, Blood 2.2 g/dL (3.4-5.0); Albumin/Globulin Ratio 0.9 (0.8-1.8); Alk Phos 372 U/L (50-136); Anion Gap 18 mmol/L (6-16); Aspartate Aminotrans (AST/SGOT 23 U/L (12-37); Bilirubin, Total 1.7 mg/dL (0.1-1.0); Blood Urea Nitrogen 45 mg/dL (8-24); Bun/Creatinine Ratio 46.3 (12.0-20.0); CO2, Blood 16 mmol/L (21-32); Calcium, Blood 7.1 mg/dL (8.5-10.1); Chloride, Blood 115 mmol/L (98-108); Creatinine, Blood 0.97 mg/dL (0.40-1.00); Globulin, Blood 2.5 g/dL (2.2-4.0); Glomerular Filtration Rate >60 (60-); Glucose, Blood 182 mg/dL (70-99); Magnesium, Blood 1.5 mg/dL (1.6-2.4); Potassium, Blood 3.6 mmol/L (3.5-5.5); Sodium, Blood 149 mmol/L (136-145); Total Protein, Blood 4.7 g/dL (6.4-8.2); Vancomycin, Random 21.9 ug/mL
[2020-02-03 05:35] LABS: PCO2 Arterial 29.3 mmHg (35-45); PO2 Arterial 58.2 mmHg (80-100); pH Blood Arterial 7.35 (7.35-7.45)
--- NOTE | 2020-02-03 06:03 | NUR ---
SHIFT SUMMARY PT CON'T TO BE STABLE. SHE HAS NO OVERALL CHANGES. VITALS HAVE BEEN STABLE. SHE HAS HAD SOME DIPS IN HER BP. PROPOFOL GTT HAS BEEN DECREASED AND BP RESPONDS WELL TO THIS. PT DID HAVE LOW POTASSIUM AGAIN THIS AM AND REPLACEMENT WAS STARTED. PT CON'T TO HAVE NO CHANGES TO HER MENTATION. JEAN MARIE WRIST RESTRAINTS ARE IN PLACE WITH NO COMPRIMISE TO SKIN QUALITY. PT CON'T TO HAVE TUBE FEEDIINGS RUNNING ORDERED. PROPOFOL GTT IS AT 30MCG. SEE EMAR FOR ALL ADMINISTERED MEDICATIONS. WILL CON'T TO MONITOR PT TILL REPORT TO ONCOMING RN.
--- NOTE | 2020-02-03 08:00 | NUR ---
ASSUMED CARE: REPORT RECEIVED FROM EARLINE Laguerre RN. ASSUMED CARE OF THIS PT AT APPROX 0700. ON ASSESSMENT, THE PT APPEARS COMFORTABLE W/ NO S/SX PAIN OR DISCOMFORT. SHE IS INTUBATED & SEDATED W/ PROPOFOL. W/ SEDATION, PT WITHDRAWS BLE FROM PAINFUL STIMULI BUT DOES NOT MOVE BUE. WILL COMPLETE SEDATION VACATION THIS SHIFT. LS ARE COARSE & WHEEZING T/O W/ CRACKLES IN BILAT BASES. VENTILATOR SETTINGS: AC 16, TV 350, PEEP 5 & FIO2 50%. MONITOR SHOWS ST W/ HR 110s, BP HYPOTENSIVE BUT STABLE. DOBHOFF IN PLACE TO L NARE, INFUSING TUBE FEEDS OF PIVOT 1.5 AT GOAL RATE OF 40 ML/HR W/ 200 ML H2O FLUSH Q4H. RECTAL TUBE IN PLACE DRAINING DARK BROWN LIQUID STLS, BAG CHANGED BY THIS RN. TEMP RICE PATENT/ DRAINING SMALL AMNTS OF DARK YELLOW URINE. SKIN CONDITION OVERALL POOR, PT HAS MANY WOUNDS TO POSTERIOR BODY SURFACE & MANY ABRASIONS T/O SKIN SURFACT. THOROUGH DOCUMENTATION & PHOTOS IN CHART. Q2H REPOSITIONING TO PREVENT FURTHER DAMAGE TO SKIN. WILL CONTINUE TO MONITOR & UPDATE NEEDED.
--- NOTE | 2020-02-03 11:27 | NUR ---
DR RICHMOND: PROVIDER AT BEDSIDE TO [facility]. REQUEST FOR R/U LABS AFTER POTASSIUM REPLETION, ORDERS FOR POTASSIUM RECHECK & F/U H&H PLACED ONE HR AFTER BLOOD TRANSFUSION COMPLETE. SHE WOULD LIKE THE TUBE FEEDS TO BE PLACED ON HOLD FOR THE POSSIBILITY OF ANOTHER EGD NEEDING COMPLETED THE PT CONTINUES TO HAVE DARK LIQUID STLS. MAG REPLETION ALSO ORDERED. NO OTHER CHANGES AT THIS TIME.
[2020-02-03 15:05] LABS: Hematocrit 27.5 % (33.0-51.0)
--- NOTE | 2020-02-03 18:50 | NUR ---
SHIFT SUMMARY: NO ACUTE CHANGES SINCE PRIOR UPDATES. PT REMAINS INTUBATED & SEDATED W/ PROPOFOL. WITHDRAWS TO PAINFUL STIMULUS, MINIMAL MVMT OF BUE. LS REMAIN COARSE & WHEEZING T/O, CRACKLES TO BILAT LOWER LOBES. VENT SETTINGS: AC 16/350/5/40%, O2 SATS > 92%. MONITOR SHOWS ST W/ HR 100s, BP STABLE. PT RECEIVING GOLYTELY, COPIOUS AMNTS OF LIQUID RUST COLORED STLS. TEMP RICE PATENT/ DRAINING W/ SCANT OUTPUT THIS SHIFT, DR RICHMOND NOTIFIED & DIURESIS ORDERED. SKIN CONDITION OVERALL UNCHANGED. Q2H REPOSITIONING TO PROTECT SKIN FROM FURTHER DAMAGE.\ WILL CONTINUE TO MONITOR & REPORT OFF TO ONCOMING RN.
--- NOTE | 2020-02-03 20:00 | NUR ---
ASSUMPTION OF CARE: PT INTUBATED AND SEDATED WITH PROPOFOL. ONLY RESPONDS TO PAINFUL STIMULI. IN ST WITH HR IN THE 110S. SBP STABLE IN THE 110S. NO PRESSERS AT THIS TIME. ON VENT-SETTINGS 16/350/5/40%. LUNG SOUNDS COARSE T/O WITH EXP WHEEZES IN UPPER BROOKS. CRACKLES IN R UPPER AREA. SPO2>90%. BT HYPOACTIVE, HOWEVER PT IS HAVING LARGE AMOUNTS OF LIQUID STOOL OUT OF RECTAL TUBE. AT BEGINNING OF SHIFT STOOL WAS A DARKISH BROWN COLOR. CURRENTLY [employer] SALES [employer] BROWN LIQUID IS PRESENT IN RECTAL TUBE BAG. PT IS ON GOLYTELY THROUGH [place] PUMP. RICE TO BE NOTIFIED WHEN GOLYTELY IS FINISHED IN PREP FOR SCOPE THIS EVENING. RICE IN PLACE DRAINING SMALL AMOUNTS OF YELLOW URINE. PT IS EDEMATOUS T/O. PT ALSO HAS MULTIPLE WOUNDS-ON COCCYX, L FOOT, R ARM. COCCYX IS JESSI. R ARM HAS MEPILEX IN PLACE AND IS C/D/I. WILL CONTINUE TO MONITOR.
--- NOTE | 2020-02-03 20:30 | NUR ---
DR ROME CALLED AND ASKED FOR UPDATE. DOUG FINISHED. ORDERS RECEIVED TO GIVE ANOTHER 1/2 GAL TO INFUSE AND BE FINISHED NO LATER THAN 529.
--- NOTE | 2020-02-03 22:15 | NUR ---
DR ROME PLAN IS TO SCOPE PT TOMORROW MORNING AT 0730
[2020-02-04 01:08] LABS: HIV SCREEN 4TH GENERATION WRFX Non Reactive (Non Reactive)
[2020-02-04 03:34] LABS: Hematocrit 27.2 % (33.0-51.0); Hemoglobin 8.9 g/dL (11.5-16.0); Mean Corpuscular HGB 31.1 pg (26.0-34.0); Mean Corpuscular HGB Conc 32.7 g/dL (31.5-36.5); Mean Corpuscular Volume 95 fL (80-100); Mean Platelet Volume 12.2 fL (9.1-12.4); NRBC Auto 0.6 /100 WBC (0.0-0.2); Platelet Count 171 K/mm3 (150-400); RDW Standard Deviation 61.4 fL (35.1-46.3); Red Blood Cell Count 2.86 M/mm3 (3.80-5.20); White Blood Cell Count 17.64 K/mm3 (4.00-11.30)
[2020-02-04 03:48] LABS: International Normalized Ratio 1.28; Prothrombin Time Results 13.5 Sec (9.7-11.5)
[2020-02-04 03:52] LABS: Alanine Aminotransfer (ALT/SGP 19 U/L (12-78); Albumin, Blood 2.1 g/dL (3.4-5.0); Albumin/Globulin Ratio 0.8 (0.8-1.8); Alk Phos 504 U/L (50-136); Anion Gap 18 mmol/L (6-16); Aspartate Aminotrans (AST/SGOT 23 U/L (12-37); Bilirubin, Total 2.1 mg/dL (0.1-1.0); Blood Urea Nitrogen 49 mg/dL (8-24); CO2, Blood 18 mmol/L (21-32); Calcium, Blood 7.5 mg/dL (8.5-10.1); Chloride, Blood 111 mmol/L (98-108); Creatinine, Blood 1.09 mg/dL (0.40-1.00); Globulin, Blood 2.8 g/dL (2.2-4.0); Glomerular Filtration Rate 55 (60-); Glucose, Blood 169 mg/dL (70-99); Potassium, Blood 3.5 mmol/L (3.5-5.5); Sodium, Blood 147 mmol/L (136-145); Total Protein, Blood 4.9 g/dL (6.4-8.2); Vancomycin, Random 18.7 ug/mL
[2020-02-04 03:53] LABS: BAND PERCENT MAN 3 % (0-8); BASOPHILS PERCENT MAN 0 % (0-2); EOSINOPHILS PERCENT MAN 0 % (0-6); LYMPHOCYTES ABSOLUTE MAN 0.52 K/mm3 (0.84-5.20); LYMPHOCYTES PERCENT MAN 3 % (21-46); METAMYELOCYTE ABSOLUTE MAN 0.52 K/mm3 (0.00-0.00); METAMYELOCYTE PERCENT MAN 3 % (0-0); MONOCYTES ABSOLUTE MAN 0.52 K/mm3 (0.16-1.47); MONOCYTES PERCENT MAN 3 % (4-13); MYELOCYTE ABSOLUTE MAN 0.35 K/mm3 (0.00-0.00); MYELOCYTE PERCENT MAN 2 % (0-0); NEUTROPHILS ABSOLUTE MAN 15.69 K/mm3 (1.96-9.15); SEG NEUTROPHILS PERCENT MAN 86 % (41-73); TOTAL CELLS COUNTED 100
--- NOTE | 2020-02-04 05:55 | NUR ---
CALL PLACED TO DR ROME TO UPDATE ON STOOL. STOOL IS LIQUID AND TRANSPARENT HOWEVER STILL HAS SOME SOLID PIECES AND IS LIGHT BROWN. PER DR ROME LEAVE PT IS AND MAKE SURE SHE IS NPO STARTING NOW.
--- NOTE | 2020-02-04 05:59 | NUR ---
SHIFT SUMMARY: NO ACUTE CHANGES T/O SHIFT. VSS. VENT SETTINGS REMAINED UNCHANGED. HOWEVER RT IS CURRENTLY PERFORMING A WEAN ON PT. PT TOLERATED WEAN WELL. HOWEVER PT DID NOT FOLLOW ANY COMMANDS AND HAD NO PURPOSEFUL MOVEMENTS. PROPOFOL DOWN TO 15MCG FOR WEAN. RICE IN PLACE DRAINING SMALL AMT OF YELLOW URINE. RECTAL TUBE IN PLACE-SEE PREVIOUS NOTE. PT IS SCHEDULED FOR A COLONOSCOPY AT 0730 THIS AM. PT REMAINS EDEMATOUS WITH DEEP PITTING. COCCYX WOUND IS CLEAN, HEALING WELL, DRESSING CHANGED DURING BATH. DRESSING TO WEEPING ABRASION ON R ARM CHANGED. WILL PASS REPORT TO ONCOMING RN
--- NOTE | 2020-02-04 06:51 | NUR ---
DAY SURGERY AT BEDSIDE TO BEGIN COLONSCOPY
--- NOTE | 2020-02-04 07:07 | NUR ---
INTO ICU 12 FOR PROCEDURE. ROOM PREPARED FOR PROCEDURE.
--- NOTE | 2020-02-04 09:56 | NUR ---
[place] of Care: Care assumed at 0700hr. Endoscopy team in room at shift change, preparing for colonoscopy per Dr. Villarreal this morning. Dr. Villarreal then to room at approx 0730hr, and performed colonoscopy without difficulty (see progress note). Patient tolerated colonoscopy, in far lt side lying position, VS remained stable throughout procedure. Ventilator to AC-16/350/35/5, spO2-96-100%, tolerating vent without difficulty. Propofol gtt at 20mcg/kg/min, patient responds to painful/noxious stimuli, but not following any commands. Withdraws to pain and open eyes to noxious stimuli. PICC line to lt upper arm patent and intact, infusing without difficulty. Bilateral soft wrist restraints in placed to protect lines, tubes, cords. Will continue to monitor.
[2020-02-04 17:33] LABS: Magnesium, Blood 1.5 mg/dL (1.6-2.4); Phosphorus, Blood 2.7 mg/dL (2.5-4.9); Potassium, Blood 3.2 mmol/L (3.5-5.5)
--- NOTE | 2020-02-04 18:29 | NUR ---
Shift Summary: No significant changes throughout shift (see previous note r/t colonoscopy this morning). VS remains stable throughout shift, no s/s of active GI bleeding. Remains intubated and sedated, propofol gtt increased to 30mcg/kg/min as patient became more awake/restless in bed. Patient remained unable to follow any commands while awake. No changes to vent setting's throughout shift. Breath stacking ventilations noted at times throughout shift, this along with facial grimacing caused concern for pain. Prn Fentanyl given with good effect noted. Dr. Roche also called to room r/t patient's breath stacking, ET suctioning also effective to synchronize respirations. PICC line to lt upper arm remains patent and intact, infusing without difficulty. Miranda cath remains patent and intact, drained 400ml dark yellow output. Approx 1700hr, patient had x7 beat run of V-tach. Consulted with Dr. Roche and received orders for potassium, magnesium, and phosphorus lab values. New lab values received and reported to Dr. Roche, new orders then received for IV KCl and magnesium. No further V-tach or ectopy noted throughout remainder of shift. Appears calm and comfortable at this time, will continue to monitor until report to NOC shift RN.
--- NOTE | 2020-02-04 20:19 | NUR ---
CARE ASSUMED CARE AND REPORT ASSUMED FROM RAHUL MARINA. PT INTUBATED AND SEDATED. PROPOFOL GTT AT 35 MCG. VENT AC 16, 350, PEEP 5, FIO2 30%. LUNG SOUNDS CLEAR ON L SIDE BUT WHEEZY ON R SIDE. ABDOMINAL SOUNDS HYPOACITVE. DOPHOFF SECURED IN NARE WITH TUBE FEEDS AT GOAL RATE. PUPILS EQUAL AND REACTIVE. NO S/S PAIN AT THIS TIME. CURRENTLY IN NSR, HR 90-110. BP WNL. POTASSIUM REPLACEMENT INFUSING PER ORDERS. BUE RESTRAINED. MEPILEX SECURED OVER WOUNDS ON COCCYX, UPPER POSTERIOR THIGHS, AND ARMS. AFEBRILE. D5W AT 50 ML/HR PER ORDER. WILL CONTINUE TO MONITOR.
--- NOTE | 2020-02-04 23:54 | NUR ---
REASSESSMENT PT REMAINS INTUBATED AND SEDATED. VENT REMAINS AT AC 16, 350, PEEP 5, FIO2 30%. LUNG SOUNDS NOW COARSE AND WHEEZY ALL THROUGHOUT. PROPOFOL GTT REMAINS ON 35 MCG. REMAINS NSR, HR 90-110. BP WNL. TOLERATES TUBE FEEDS. BUE REMAIN. WILL CONTINUE TO MONITOR.
[2020-02-05 03:33] LABS: Hemoglobin 7.9 g/dL (11.5-16.0); Mean Corpuscular HGB 30.7 pg (26.0-34.0); Mean Corpuscular HGB Conc 31.6 g/dL (31.5-36.5); Mean Corpuscular Volume 97 fL (80-100); Mean Platelet Volume 11.7 fL (9.1-12.4); NRBC ABSOLUTE 0.05 K/mm3 (0.00-0.02); NRBC Auto 0.3 /100 WBC (0.0-0.2); Platelet Count 165 K/mm3 (150-400); RDW Coefficient Variation 17.8 % (11.7-14.2); RDW Standard Deviation 61.1 fL (35.1-46.3); Red Blood Cell Count 2.57 M/mm3 (3.80-5.20); White Blood Cell Count 16.71 K/mm3 (4.00-11.30)
[2020-02-05 03:52] LABS: Anion Gap 16 mmol/L (6-16); Blood Urea Nitrogen 55 mg/dL (8-24); Bun/Creatinine Ratio 43.7 (12.0-20.0); CO2, Blood 17 mmol/L (21-32); Calcium, Blood 7.6 mg/dL (8.5-10.1); Chloride, Blood 109 mmol/L (98-108); Creatinine, Blood 1.26 mg/dL (0.40-1.00); Glomerular Filtration Rate 47 (60-); Glucose, Blood 169 mg/dL (70-99); Magnesium, Blood 1.6 mg/dL (1.6-2.4); Phosphorus, Blood 2.7 mg/dL (2.5-4.9); Potassium, Blood 3.4 mmol/L (3.5-5.5); Sodium, Blood 142 mmol/L (136-145)
[2020-02-05 03:53] LABS: BAND PERCENT MAN 3 % (0-8); BASOPHILS PERCENT MAN 0 % (0-2); EOSINOPHILS PERCENT MAN 0 % (0-6); LYMPHOCYTES ABSOLUTE MAN 0.66 K/mm3 (0.84-5.20); LYMPHOCYTES PERCENT MAN 4 % (21-46); METAMYELOCYTE ABSOLUTE MAN 0.16 K/mm3 (0.00-0.00); METAMYELOCYTE PERCENT MAN 1 % (0-0); MONOCYTES PERCENT MAN 3 % (4-13); MYELOCYTE ABSOLUTE MAN 0.66 K/mm3 (0.00-0.00); MYELOCYTE PERCENT MAN 4 % (0-0); SEG NEUTROPHILS PERCENT MAN 85 % (41-73); TOTAL CELLS COUNTED 100
--- NOTE | 2020-02-05 04:22 | NUR ---
REASSESSMENT NO CHANGE SINCE PRIOR ASSESSMENT. PT REMAINS INTUBAED AND SEDATED. CXR AND LABS OBTAINED. FENTANYL 50 MCG IVP GIVEN NEEDED FOR PAIN. WILL CONTINUE TO MONITOR.
--- NOTE | 2020-02-05 05:37 | NUR ---
SHIFT SUMMARY PT HAS REMAINED INTUBATED AND SEDATED ENTIRE SHIFT EXCEPT DURING SEDATION VACATION THIS AM. SEDATION VACATION LASTED 1 HOUR AND PT DID NOT PASS WEAN. SHE WAS NOT FOLLOWING ANY COMMANDS; EYES WERE OPEN BUT PT NOT ABLE TO FOLLOW. HAS TOLERATED TF AT GOAL RATE ENTIRE SHIFT. URINE OUTPUT 300 ML. BEDBATH AND LINEN CHANGE COMPLETED. PT REMAINED IN BUE RESTRAINTS ENTIRE SHIFT. HOB ELEVATED AND PT TURNED Q2H. POTASSIUM REPLACEMENT INFUSING. PT HAD BLOODY, LIQUID OUTPUT DURING TURN. HAS REMAINED IN SINUS TACH, HR 90-115 DURING SHIFT. BP WNL. PROPOFOL GTT AT 35 MCG. LUNG SOUNDS COARSE AND WHEEZY DURING SHIFT. WILL GIVE BEDSIDE, HANDOFF REPORT TO DAY RN.
--- NOTE | 2020-02-05 08:13 | NUR ---
02/05/20 0813 Rodrigue Humphries PATIENT WILL BE ON PROPOFOL GTT DURING PROCEDURE. 3-LEAD EKG REVIEWED WITH PHYSICIAN PRIOR TO START OF PROCEDURE. PROCEDURE DONE IN ICU 12. History, Chart, Medications and Allergies reviewed before start of procedure. MONITOR INTACT WITH CONTINUOUS PULSE OXIMETRY AND INTERMITTENT BP. O2 VIA N/C INTACT THROUGHOUT SEDATION/PROCEDURE.
--- NOTE | 2020-02-05 08:45 | NUR ---
ASSUMED CARE OF PT AT 0700. REPORT FROM VILMA MARINA. PT INTUBATED AND SEDATED. VENT SETTINGS AC 16/350/5/30%. PROPOFOL INFUSING AT 30 MCG/KG/MIN. PT RESPONSIVE TO PAINFUL STIMULI. DOES NOT FOLLOW COMMANDS. BREATHING OVER VENT. LUNGS COARSE THROUGHOUT c EXPIRATORY WHEEZES. SMALL AMOUNT OF YELLOW SECRETIONS THROUGH ETT. COUGH AND GAG REFLEX, NO SWALLOW. PT EDEMATOUS THROUGHOUT ENTIRE BODY. SCLERA EDEMA. MOUTH RED, SWOLLEN c MULTIPLE WOUNDS. PIVOT 1.5 AT GOAL OF 35 ML/HR c 100ML q4 HOUR FLUSH. DOBHOFF TO LEFT NARE. ABD SOFT, NON TENDER. BT X 4. RICE PATENT AND DRAINING TIANNA URINE TO GRAVITY. SKIN FRAGILE c MULTIPLE WOUNDS, SEE ASSESSMENT. VSS. SOFT BILATERAL WRIST RESTRAINTS IN PLACE. WILL CONTINUE TO MONITOR.
--- NOTE | 2020-02-05 13:00 | NUR ---
ISOLATION MICRO REPORT VRE IN SPUTUM. DR RICHMOND NOTIFIED. ANTIBIOTIC CHANGES NOTED. PT PLACED IN DROPLET ISOLATION.
--- NOTE | 2020-02-05 16:59 | NUR ---
SHIFT SUMMARY PT REMAINS INTUBATED AND SEDATED. VENT SETTINGS CHANGED TO PS 15/5/30%. TITAL VOLUMES 500-600ML. LUNGS REMAIN COARSE c EXPIRATORY WHEEZES. SMALL AMOUNT OF YELLOW SECRETIONS. PROPOFOL INFUSING AT 35 MCG/KG/MIN. DOES NOT FOLLOW COMMANDS, RESPONSES TO PAINFUL STIMULI. CONTINUES TO HAVE EDEMA THROUGHOUT BODY, INCREASED LASIX DOSE TODAY. 700 URINE OUTPUT TODAY. CONTINUED TUBE FEEDS. SPUTUM CULTURES RESULTED VRE, PLACED IN DROPLET ISOLATION AND ANTIBIOTICS CHANGED. POTENTIAL INTERACTION c FENTANYL AND LINEZOLID, DR RICHMOND AWARE, WILL MONITOR FOR S/S OF SEROTONIN SYNDROME. VSS. WILL CONTINUE TO MONITOR UNTIL REPORT TO ONCOMING NURSE.
--- NOTE | 2020-02-05 21:30 | NUR ---
CARE ASSUMED CARE AND REPORT ASSUMED FROM MARIA VICTORIA MARINA. PT INTUBATED AND SEDATED. VENT PS 15, PEEP 5, FIO2 25%. LUNG SOUNDS COARSE AND WHEEZY THROUGHOUT ALL BROOKS. PROPOFOL GTT INFUSING AT 35 MCG. BUE RESTRAINED. DURING BEDBATH AND TURN, PT HAD LARGE, LIQUID, JELLY-LIKE, RED COLORED STOOL; VISUALIZED BY MD ROME. BUE RESTRAINED. PT EDEMATOUS ON ALL EXTREMITIES WITH SOME AREAS OF WEEPING. PT HAS ULCERATIONS AND BLISTERS ON COCCYX AND POSTERIOR UPPER THIGHS. WILL OBTAIN UPDATED PHOTOS. WILL CONTINUE TO MONITOR.
--- NOTE | 2020-02-06 00:48 | NUR ---
REASSESSMENT PT REMAINS INTUBATED AND SEDATED. VENT REMAINS ON PS 15, PEEP 5, FIO2 25%. LUNG SOUNDS COARSE THROUGHOUT. PROPOFOL GTT AT 35 MCG. BEDBATH AND LINEN CHANGE COMPLETED. PT HAD ANOTHER LARGE, LIQUID, RED BOWEL MOVMENT. REPEAT PHOTOS OBTAINED OF COCCYX AREA. GENTLE ORAL CARE DONE DUE TO ORAL ULCERS ON INNER LOWER LIP AND BUCCAL AREA. AFEBRILE. WILL CONTINUE TO MONITOR.
[2020-02-06 04:00] LABS: BASOPHILS ABSOLUTE AUTO 0.03 K/mm3 (0.00-0.23); BASOPHILS PERCENT AUTO 0 % (0-2); EOSINOPHILS PERCENT AUTO 0 % (0-6); Hematocrit 25.4 % (33.0-51.0); Hemoglobin 8.1 g/dL (11.5-16.0); IMMATURE GRAN ABSOLUTE AUTO 1.01 K/mm3 (0.00-0.10); IMMATURE GRAN PERCENT AUTO 5 % (0-1); LYMPHOCYTES ABSOLUTE AUTO 0.68 K/mm3 (0.84-5.20); LYMPHOCYTES PERCENT AUTO 3 % (21-46); MONOCYTES ABSOLUTE AUTO 0.95 K/mm3 (0.16-1.47); MONOCYTES PERCENT AUTO 5 % (4-13); Mean Corpuscular HGB 30.9 pg (26.0-34.0); Mean Corpuscular HGB Conc 31.9 g/dL (31.5-36.5); Mean Corpuscular Volume 97 fL (80-100); Mean Platelet Volume 12.3 fL (9.1-12.4); NEUTROPHILS ABSOLUTE AUTO 18.41 K/mm3 (1.96-9.15); NEUTROPHILS PERCENT AUTO 87 % (41-73); NRBC ABSOLUTE 0.05 K/mm3 (0.00-0.02); NRBC Auto 0.2 /100 WBC (0.0-0.2); Platelet Count 177 K/mm3 (150-400); RDW Coefficient Variation 18.1 % (11.7-14.2); RDW Standard Deviation 62.4 fL (35.1-46.3); Red Blood Cell Count 2.62 M/mm3 (3.80-5.20); White Blood Cell Count 21.08 K/mm3 (4.00-11.30)
[2020-02-06 04:19] LABS: Albumin, Blood 1.6 g/dL (3.4-5.0); Anion Gap 17 mmol/L (6-16); Blood Urea Nitrogen 58 mg/dL (8-24); CO2, Blood 14 mmol/L (21-32); Chloride, Blood 110 mmol/L (98-108); Creatinine, Blood 1.38 mg/dL (0.40-1.00); Glomerular Filtration Rate 42 (60-); Glucose, Blood 156 mg/dL (70-99); Magnesium, Blood 1.6 mg/dL (1.6-2.4); Phosphorus, Blood 2.5 mg/dL (2.5-4.9); Potassium, Blood 3.5 mmol/L (3.5-5.5); Sodium, Blood 141 mmol/L (136-145)
[2020-02-06 05:27] LABS: PCO2 Arterial 26.7 mmHg (35-45); PO2 Arterial 53.6 mmHg (80-100); pH Blood Arterial 7.27 (7.35-7.45)
--- NOTE | 2020-02-06 05:41 | NUR ---
SHIFT SUMMARY PT REMAINED ON PRESSURE CONTROL ON VENTILATOR MOST OF SHIFT EXCEPT DURING WEAN. PT TURNED Q2H AND HOB ELEVATED. SHE HAD MULTIPLE MAROON, LIQUID BOWEL MOVMENTS THROUGHOUT SHIFT. UNABLE TO KEEP MEPILEX ON DUE TO SOILING OF STOOL. NEW PHOTOS OF COCCYX AND LEGS OBTAINED DURING SHIFT. SEDATION OFF FOR 1.5 HOURS THIS AM. PT HAD NO SPONTANEOUS OR PURPOSEFUL MOVEMENTS; DID NOT FOLLOW ANY COMMANDS AND WAS NOT TRACKING. PUPILS REMAIN EQUAL AND REACTIVE. PH RESULTS, ALONG WITH SEDATION VACATION RESULTS CALLED TO MD RICHMOND. T.O. TO KEEP SEDATION LIGHT AND CHANGE VENTILATOR TO PRESSURE CONTROL. AFEBRILE ENTIRE SHIFT. REMAINS IN NSR, HR 80S. BUE REMAIN RESTRAINED. WILL GIVE BEDSIDE, HANDOFF REPORT TO DAY RN.
--- NOTE | 2020-02-06 08:10 | NUR ---
ASSUMED CARE OF PT AT 0700. REPORT FROM VILMA MARINA. PT INTUBATED AND SEDATED. VENT SETTINGS PC 15/5/30%. PROPOFOL INFUSING AT 25 MCG/KG/MIN. PT UNRESPONSIVE TO VERBAL STIMULI. WITHDRAWS LEGS TO PAINFUL STIMULI, NO MOVEMENT TO UPPER EXTREMITIES NOTED. LUNGS COARSE THROUGHOUT. ULCERS NOTED IN MOUTH. ABD ROUND, FIRM, NON TENDER. BT X 4. VHP AT 35 ML/HR c 100ML FLUSHES q4 HR THROUGH DOBHOFF TO LEFT NARE. SKIN EDEMATOUS THROUGHOUT. MULIPLE AREAS OF WEEPING. ST RATE 100-110. BP STABLE. [place] [facility] [place]ESSING C/D/I. WILL CONTINUE TO MONITOR.
--- NOTE | 2020-02-06 09:03 | NUR ---
DR RICHMOND/DR REYNOLDS ROUNDS/SEDATION VACATION PLAN TO INFUSE ALBUMIN 25GM X 2. PENDING [facility] CONSULT. PROPOFOL PLACED ON STANDBY FOR APPROX 40 MINUTES. PT DID NOT FOLLOW COMMANDS. EYES OPEN c UPWARD GAZE. COUGH c SUCTIONING. CORNEAL REFLEX PRESENT. MOVES LOWER EXTREMITIES c STIMULI, NO MOVEMENT NOTED TO UPPER EXTREMITIES. RESP PATTERN, SHALLOW GASPING RESP. RATE 30'S. PROPOFOL RESTARTED AT 15 MCG/KG/MIN.
--- NOTE | 2020-02-06 14:38 | NUR ---
Pt resting in bed and intubated. Pt appears comfortale with no S/S of distress at this time. Discussed case with Bedside RN Qian. Pt experiencing significant 3rd spacing. During sedation vacation Pt moved lower extremities but no upper. Pt has blank gaze with her eyes. Discussed offering spouse to visit with Pt and Qian is agreeable. Called and spoke with spouse Lei. Offered for him to visit. Jon will accept offer but will need a day or two before he can travel up to [place]. Offered update on Pt's condition with Lei reporting receiving update this AM from Bedside RN. Lei expresses appreciation of call. Palliative Care will remain available.
--- NOTE | 2020-02-06 18:07 | NUR ---
SHIFT SUMMARY PT REMAINS INTUBATED AND SEDATED. VENT SETTINGS PS 15/5/35% c TITAL VOLUMES 500-600. PROPOFOL INFUSING AT 20 MCG/KG/MIN, FENTANYL GIVEN PRN FOR DISCOMFORT. PT MOVES LOWER EXTREMITIES TO PAINFUL STIMULI. NO MOVEMENT TO UPPER EXTREMITIES. LUNGS CONTINUE TO BE COARSE THROUGHOUT. MODERATE, WILSON, THICK SECRETIONS THROUGH ETT. WORSENING EDEMA, 3+ PITTING, BLISTERING AND WEEPING. TUBE FEEDINGS INCREASED TO 40 ML/HR c 100ML FLUSH q4 HR. ONE SMALL, RED, LOOSE BM THIS SHIFT. MEIPLEX DRESSINGS CHANGED. ALBUMIN INFUSED THIS SHIFT. RICE PATENT AND DRAINING TO GRAVITY, 750 ML OUT. PICC TO LUE, DRESSING CHANGED, PULLED 2 CM OUT FOR EXPOSED MEASUREMENT OF [address] RICHMOND. CONTINUES TO FLUSH WELL AND DRAW BLOOD. WILL CONTINUE TO MONITOR UNTIL REPORT TO ONCOMING NURSE.
--- NOTE | 2020-02-06 20:48 | NUR ---
CARE ASSUMED CARE AND REPORT ASSUMED FROM FRANTZ MARINA. PT INTUBATED AND SEDATED. VENT PC 12, PEEP 5, FIO2 35%. LUNG SOUNDS COARSE AND WHEEZY THROUGHOUT. PROPOFOL GTT INFUSING AT 20 MCG. PT CONTINUES TO HAVE VESICLES ON ANTERIOR AND POSTERIOR THIGHS WITH SOME AROUND RECTUM. PT LARGELY EDEMATOUS OVER ENTIRE BODY. BUE WEEPING. 4+ PITTING EDEMA ON ALL EXTREMITIES. TOLERATED TF AT GOAL RATE, 40 ML/HR. BUE RESTRAINED. WILL CONTINUE TO MONITOR.
--- NOTE | 2020-02-07 00:15 | NUR ---
REASSESSMENT PT REMAINS INTUBATED AND SEDATED. VENT PC 12/5, 35%. NO S/S PAIN. PROPOFOL GTT AT 20 MCG. LUNG SOUNDS CONTINUE TO BE COARSE AND WHEEZY THROUGHOUT. CONTINUES TO TOLERATE TF AT GOAL RATE THROUGH DOPHOFF. BUE RESTRAINED. PT SPONTANEOUSLY MOVING FEET. HOURLY URINE OUTPUT HAS INCREASED PAST FEW HOURS. AFEBRILE. NSR, HR 90S. WILL CONTINUE TO MONITOR.
--- NOTE | 2020-02-07 04:53 | NUR ---
REASSESSMENT PT TAKEN DOWN FOR HEAD CT WITH RT. SEDATION VACATION AND WEAN IN PROGRESS. PT REMAINS RESTRAINED. NSR, HR 90S. AFEBRILE. BP WNL. WILL CONTINUE TO MONITOR.
[2020-02-07 04:59] LABS: BASOPHILS ABSOLUTE AUTO 0.03 K/mm3 (0.00-0.23); BASOPHILS PERCENT AUTO 0 % (0-2); EOSINOPHILS PERCENT AUTO 0 % (0-6); Hematocrit 25.8 % (33.0-51.0); Hemoglobin 8.1 g/dL (11.5-16.0); IMMATURE GRAN PERCENT AUTO 4 % (0-1); LYMPHOCYTES ABSOLUTE AUTO 0.58 K/mm3 (0.84-5.20); LYMPHOCYTES PERCENT AUTO 3 % (21-46); MONOCYTES ABSOLUTE AUTO 0.66 K/mm3 (0.16-1.47); MONOCYTES PERCENT AUTO 3 % (4-13); Mean Corpuscular HGB 30.8 pg (26.0-34.0); Mean Corpuscular HGB Conc 31.4 g/dL (31.5-36.5); Mean Corpuscular Volume 98 fL (80-100); Mean Platelet Volume 12.8 fL (9.1-12.4); NEUTROPHILS ABSOLUTE AUTO 20.89 K/mm3 (1.96-9.15); NEUTROPHILS PERCENT AUTO 91 % (41-73); Platelet Count 174 K/mm3 (150-400); RDW Coefficient Variation 18.7 % (11.7-14.2); RDW Standard Deviation 64.3 fL (35.1-46.3); Red Blood Cell Count 2.63 M/mm3 (3.80-5.20); White Blood Cell Count 22.96 K/mm3 (4.00-11.30)
[2020-02-07 05:13] LABS: Bun/Creatinine Ratio 42.1 (12.0-20.0); Calcium, Blood 8.2 mg/dL (8.5-10.1); Creatinine, Blood 1.45 mg/dL (0.40-1.00); Potassium, Blood 3.5 mmol/L (3.5-5.5)
[2020-02-07 05:34] LABS: PCO2 Arterial 29.8 mmHg (35-45); PO2 Arterial 78.4 mmHg (80-100); pH Blood Arterial 7.24 (7.35-7.45)
--- NOTE | 2020-02-07 06:14 | NUR ---
SHIFT SUMMARY PT REMAINED ON VENT PC /, 35% MOST OF NIGHT. WEAN WAS PERFORMED; SEE ABG RESULTS. SEDATION VACATION LASTED 80 MINUTES. PT DID NOT TRACK AND WAS NOT FOLLOWING ANY COMMANDS. SHE DID RESPOND TO PAINFUL STIMULI. APPLIED MEPILEX DRESSING TO BUTTOCKS BUT A FEW WERE REMOVED DUE TO SOILING FROM STOOL. PT HAD 2 LARGE, LIQUID, MAROON BOWEL MOVEMENTS DURING SHIFT. URINE OUTPUT 1000 ML. PT TAKEN DOWN FOR HEAD CT; TOLERATED TRANSPORT WELL. TOLERATED TF AT GOAL RATE ENTIRE SHIFT. HOB ELEVATED AND PT TURNED Q2H. HR REMAINED IN NSR DURING NIGHT. BP WNL AND PT AFEBRILE. WILL GIVE BEDSIDE, HANDOFF REPORT TO DAY RN.
--- NOTE | 2020-02-07 08:03 | NUR ---
ASSUMED CARE REPORT FROM LAINA PAIZ. PATIENT IS INTUBATED AND VENTILATED A/C- PC 08/08. WHEEZES T/O (HIGH PTICHED). PROPOFOL WAS AT 20 MCG/KG/MIN. UPWARD GAZE IN OPPOSITE DIRECTIONS. PROPOFOL TURNED OFF. GAZE CORRECTED, BUT NOT RESPONSIVE. RESTRAINTS REMOVED. PITTING EDEMA WITH BLISTERS ALL EXTREMITIES. LIQUID STOOL FLOWED WHEN TURNED. CLEANED, LINEN CHANGED, PARTIAL BATH, SOILED MEPILEX FOAM PADS REPLACED. TF AT 45 ML/HR
--- NOTE | 2020-02-07 08:29 | NUR ---
MD VISIT DR. SOTELO IN. NO NEW ORDERS
--- NOTE | 2020-02-07 12:53 | NUR ---
MD VISIT DR. HIDALGO IN.
--- NOTE | 2020-02-07 18:18 | NUR ---
MD VISIT DR. ROME IN. CONSULT WITH DERM CANCELED BLISTERS ARE FROM [facility]
--- NOTE | 2020-02-07 19:39 | NUR ---
ASSUMED PT CARE AT 1915 PT INTUBATED AND LAYING IN BED. AC 16, PI 12, FIO2 35, PEEP 5. VHP AT 40ML/HR (GOAL) WITH 100 ML FLUSH Q4HR. PROPOFOL 20 MCG/KG/MIN. "GUPPY" BREATHING NOTED. EYES OPEN, NO SPONTANIOUS TRACKING. NO SPONTANIOUS MOVEMENT OF EXTREMITIES. SEDATION REMAINS OFF AT THIS TIME. MONITOR SHOW SR/ST, RATE 90'S-100'S. AFIBRIL. RICE PATENT AND DRAINING TO GRAVITY. PICC NOTED TO LT UPPER ARM. SEE SHIFT ASSESSMENT FOR FULL ASSESSMENT.
--- NOTE | 2020-02-08 01:50 | NUR ---
CODE BLUE MONITOR SHOWS TORSADES FOLLOWED BY PEA. CODE BLUE CALLED AT THIS TIME. SEE CODE BLUE SHEET.
--- NOTE | 2020-02-08 02:06 | NUR ---
ROSC ROSC ACHIEVED AT THIS TIME. MONITOR NOW SHOWS ST, RATE 130s. BP 180s/80-90s. PROPOFOL TURNED OFF DURING CODE AND REMAINS OFF AT THIS TIME. PT IS UNRESPONSIVE. VENT SETTINGS CHANGED TO AC 16/VC 400, PEEP 5, WITH FIO2 NOW 100%. CODE BUNDLE ORDERED.
[2020-02-08 02:22] LABS: PCO2 Arterial 54.9 mmHg (35-45); PO2 Arterial 50.8 mmHg (80-100)
[2020-02-08 02:23] LABS: pH Blood Arterial 6.99 (7.35-7.45)
[2020-02-08 02:33] LABS: BASOPHILS ABSOLUTE AUTO 0.13 K/mm3 (0.00-0.23); BASOPHILS PERCENT AUTO 0 % (0-2); EOSINOPHILS PERCENT AUTO 0 % (0-6); Hematocrit 29.2 % (33.0-51.0); IMMATURE GRAN ABSOLUTE AUTO 2.28 K/mm3 (0.00-0.10); IMMATURE GRAN PERCENT AUTO 7 % (0-1); LYMPHOCYTES ABSOLUTE AUTO 2.26 K/mm3 (0.84-5.20); LYMPHOCYTES PERCENT AUTO 7 % (21-46); MONOCYTES ABSOLUTE AUTO 1.13 K/mm3 (0.16-1.47); MONOCYTES PERCENT AUTO 3 % (4-13); Mean Corpuscular HGB Conc 30.8 g/dL (31.5-36.5); NEUTROPHILS ABSOLUTE AUTO 27.66 K/mm3 (1.96-9.15); NEUTROPHILS PERCENT AUTO 83 % (41-73); NRBC ABSOLUTE 0.15 K/mm3 (0.00-0.02); NRBC Auto 0.4 /100 WBC (0.0-0.2); Platelet Count 191 K/mm3 (150-400); RDW Coefficient Variation 19.3 % (11.7-14.2); White Blood Cell Count 33.46 K/mm3 (4.00-11.30)
[2020-02-08 02:34] LABS: Mean Corpuscular Volume 101 fL (80-100)
[2020-02-08 02:46] LABS: Bun/Creatinine Ratio 42.9 (12.0-20.0); Creatinine, Blood 1.54 mg/dL (0.40-1.00); Magnesium, Blood 2.6 mg/dL (1.6-2.4); Phosphorus, Blood 5.3 mg/dL (2.5-4.9); Potassium, Blood 4.2 mmol/L (3.5-5.5)
[2020-02-08 02:47] LABS: International Normalized Ratio 1.17; Prothrombin Time Results 12.4 Sec (9.7-11.5)
[2020-02-08 02:48] LABS: BAND PERCENT MAN 6 % (0-8); BASOPHILS PERCENT MAN 0 % (0-2); EOSINOPHILS PERCENT MAN 0 % (0-6); LYMPHOCYTES ABSOLUTE MAN 3.34 K/mm3 (0.84-5.20); LYMPHOCYTES PERCENT MAN 10 % (21-46); METAMYELOCYTE PERCENT MAN 3 % (0-0); MONOCYTES PERCENT MAN 0 % (4-13); NEUTROPHILS ABSOLUTE MAN 29.11 K/mm3 (1.96-9.15); SEG NEUTROPHILS PERCENT MAN 81 % (41-73); TOTAL CELLS COUNTED 100
[2020-02-08 03:25] LABS: Troponin I 0.093 ng/mL (0.000-0.040)
[2020-02-08 05:06] LABS: PCO2 Arterial 37.3 mmHg (35-45); PO2 Arterial 131 mmHg (80-100)
[2020-02-08 05:08] LABS: pH Blood Arterial 7.18 (7.35-7.45)
--- NOTE | 2020-02-08 06:16 | NUR ---
CODE STATUS DISCUSSED SITUATION AND PLAN OF CARE WITH AND PT's CHRISTIAN [employer]ISTRIES PROFESSOR. AT THIS TIME, WISHES TO CHANGE PT TO DNR STATUS AND CONTINUE WITH CURRENT TREATMENT. HE WISHES TO DISCUSS COMFORT CARE REMAINING FAMILY AND WITH DR. HIDALGO WHEN AVAILABLE.
--- NOTE | 2020-02-08 06:42 | NUR ---
END OF SHIFT SUMMARY REMAINS INTUBATED. S/P CODE BLUE THIS AM WITH ROSC, SEE CODE BLUE SHEET. LEVOPHED STARTED THIS AM TO MAINTAIN MAP >65. BICARB DRIP STARTED THIS AM PER ORDER. VHT 40ML/HR (GOAL) WITH 100ML FLUSH Q4HR. RICE PATENT AND DRAINING TO GRAVITY. AND INFORMATION SUPPORT PROJECT MANAGER AT BEDSIDE. CODE STATUS READDRESSED. PT NOW DNR. PT REMAINS UNRESPONSIVE AND LABORED BREATHING CONTINOUS. PROPOFOL INFUSED FOR SHORT TIME DURING SHIFT, NOW IS OFF. MEDICATED TWICE WITH FENTANYL IV FOR COMFORT. WILL REPORT TO [facility] DAY RN WHEN AVAILABLE.
--- NOTE | 2020-02-08 07:20 | NUR ---
ASSUMED CARE REPORT FROM LAINA SANTAMARIA AND PERFORMANCE TESTER. PATIENT IS NOW DNR. LEVOPHED TITRATED TO 6 MCG FOR MAP LESS THAN 65. AT BEDSIDE WITH HIS DRYING MACHINE OPERATOR. HE WOULD LIKE PATIENT EXTUBATED. ORDERS RECEIVED FROM DR. HIDALGO.
--- NOTE | 2020-02-08 08:22 | NUR ---
PATIENT EXTUBATED 0755. LEVOPHED OFF. 4 MG MORPHINE IV GIVEN FOR COMFORT. AND PAVER INSTALLER AT BEDSIDE.
--- NOTE | 2020-02-08 08:51 | NUR ---
TIME OF 829. NOTIFICATIONS MADE.
== END 2020-02-08 09:43 | DRG 870 ==
LOC: ER 17:20 → EDBEDREQ 19:56 → ICUW 19:57
PROVIDERS: Family Medicine; Hospitalist; Internal Medicine; Internal Medicine Critical Care Medicine; Internal Medicine Gastroenterology; Internal Medicine Pulmonary Disease; Nurse Practitioner Acute Care; Pharmacist; Student in an Organized Health Care Education/Training Program; ADMIT Internal Medicine
PROC: 02HV33Z Insertion of Infusion Device into Superior Vena Cava, Percutaneous Approach (ICD-10-PCS; 2020-01-25)
PROC: 3E033XZ Introduction of Vasopressor into Peripheral Vein, Percutaneous Approach (ICD-10-PCS; 2020-01-25)
PROC: 0DB58ZX Excision of Esophagus, Via Natural or Artificial Opening Endoscopic, Diagnostic (ICD-10-PCS; 2020-01-28)
PROC: 0DB78ZX Excision of Stomach, Pylorus, Via Natural or Artificial Opening Endoscopic, Diagnostic (ICD-10-PCS; 2020-01-28)
PROC: 0DB68ZX Excision of Stomach, Via Natural or Artificial Opening Endoscopic, Diagnostic (ICD-10-PCS; 2020-01-28)
PROC: 5A1955Z Respiratory Ventilation, Greater than 96 Consecutive Hours (ICD-10-PCS; principal; 2020-02-02)
PROC: 0BH17EZ Insertion of Endotracheal Airway into Trachea, Via Natural or Artificial Opening (ICD-10-PCS; 2020-02-02)
PROC: 30233N1 Transfusion of Nonautologous Red Blood Cells into Peripheral Vein, Percutaneous Approach (ICD-10-PCS; 2020-02-02)
PROC: 0DBH8ZX Excision of Cecum, Via Natural or Artificial Opening Endoscopic, Diagnostic (ICD-10-PCS; 2020-02-04)
PROC: 0DBE8ZX Excision of Large Intestine, Via Natural or Artificial Opening Endoscopic, Diagnostic (ICD-10-PCS; 2020-02-04)
DX: A41.9 Sepsis, unspecified organism (principal); R65.21 Severe sepsis with septic shock; J96.01 Acute respiratory failure with hypoxia; K22.11 Ulcer of esophagus with bleeding; K26.4 Chronic or unspecified duodenal ulcer with hemorrhage; J18.9 Pneumonia, unspecified organism; G92 Toxic encephalopathy; D62 Acute posthemorrhagic anemia; N17.9 Acute kidney failure, unspecified; N39.0 Urinary tract infection, site not specified; N12 Tubulo-interstitial nephritis, not specified as acute or chronic; K63.3 Ulcer of intestine; E87.0 Hyperosmolality and hypernatremia; E87.1 Hypo-osmolality and hyponatremia; Z51.5 Encounter for palliative care; Z20.828 Contact with and (suspected) exposure to other viral communicable diseases; J44.9 Chronic obstructive pulmonary disease, unspecified; E66.01 Morbid (severe) obesity due to excess calories; G89.29 Other chronic pain; K44.9 Diaphragmatic hernia without obstruction or gangrene; K22.2 Esophageal obstruction; L53.8 Other specified erythematous conditions; R57.8 Other shock
CPT/HCPCS: 0097U; 0099U; 31500; 31720; 36415; 36430; 36556; 36569; 36600; 51702; 70450; 71045; 74018; 74176; 74177; 80048; 80051; 80053; 80069; 80202; 81001; 82140; 82248; 82330; 82530; 82550; 82607; 82728; 82746; 82803; 82947; 83516; 83540; 83550; 83605; 83735; 83880; 84100; 84132; 84145; 84300; 84443; 84484; 84703; 85014; 85018; 85025; 85384; 85610; 85651; 85730; 86038; 86140; 86160; 86225; 86235; 86317; 86704; 86708; 86803; 86850; 86900; 86901; 86923; 87040; 87070; 87077; 87086; 87106; 87186; 87205; 87340; 87389; 88305; 88341; 88342; 92950; 93005; 93010; 94002; 94003; 94640; 94660; 96361-59; 96365-59; 96368; 96375-59; 96376-59; 99285-25; C1751; C9113; J0171; J0692; J0696; J1100; J1170; J1430; J1644; J1720; J1815; J1940; J2020; J2060; J2185; J2248; J2270; J2370; J2704; J3010; J3370; J3411; J3430; J3475; J3480; J7030; J7040; J7050; J7060; J7070; J7120; P9016; P9046; Q9967; Q9968; U0002